=== PATIENT | female | born 1950 | race Caucasian/White ===

== ENCOUNTER → 2017-05-11 10:15 | Outpatient (CLI) | payer MEDICARE, SELFPAY ==
--- NOTE | 2017-05-11 10:23 | HPBI_ITS ---
MAMMOGRAPHY - BILATERAL SCREENING REASON FOR EXAM: Female, 67 years old. Routine annual screening examination. PERTINENT HISTORY: Mother with breast cancer. TECHNIQUE: Digital bilateral breast jadon (3D mammographic acquisition) in the CC and MLO projections. 2-D mediolateral oblique (MLO) and craniocaudad (CC) views of both breasts were obtained. CAD: Full Field Digital Mammography with Computer Added Detection was performed. COMPARISON: Comparison is made with prior operative examination dated every 2016. FINDINGS: Breast Composition: There are scattered areas of fibroglandular density. There are no dominant masses or suspicious calcifications. Stable asymmetry of breast tissue or more breast tissue is seen in the upper outer quadrant of the left breast as compared to the right side. No other significant abnormalities are identified. There has been no significant change since the prior study. HPBI/SCREENING MAMM (CAD), BILAT IMPRESSION: Stable bilateral screening mammogram. Yearly follow-up mammogram recommended. (A) ASSESSMENT CATEGORY: BIRADS Category 2: Benign. A letter regarding these results will be sent to the patient by the facility within 30 days. Approximately 10% of breast cancers are not detected by mammography. A normal mammogram should not delay biopsy of a clinically suspicious abnormality. [id number] Electronically Signed: Deep Soto MD at 14:11 EST Tel [phone], Service support ,
== END ==
PROVIDERS: Family Provider Internal Medicine; PCP Internal Medicine; Visit Provider Obstetrics & Gynecology
DX: Z12.31 Encounter for screening mammogram for malignant neoplasm of breast (principal)
CPT/HCPCS: 77063; 77067

== ENCOUNTER 2017-07-30 14:18 | Emergency (ER) | payer MEDICARE, SELFPAY ==
[2017-07-30 14:19] VITALS: BP 121/70; PULSE 74; RESP 16; TEMP 37.2; O2SAT 100; BMI 27.3
[2017-07-30] MEDS: 0.9% Normal Saline 1,000 ML 1000 ML IV (14:40)
--- NOTE | 2017-07-30 14:48 | VDLE_ITS ---
Reason For Study: swelling Procedure LEFT Exam performed portable in ED. GSV is normal. The exam was diagnostic. CFV is compressible, spontaneous, competent, A preliminary report was called and/or faxed and demonstrates pulsatile venous flow. to Dr. Benavidez. FV is compressible, spontaneous, competent and demonstrates pulsatile venous flow. POP V is compressible, spontaneous, competent and demonstrates pulsatile venous flow. T/P Trunk is compressible. PTV is compressible. LT PerV is compressible. Interpretation Summary There is no evidence of left lower extremity deep vein thrombosis. Left greater saphenous vein appears patent and compressible segmentally. Pulsitile venous flow is noted suggestive of proximal venous hypertension; clinical correlation would be appropriate. Ordering Physician: Martínez Benavidez Performed By: Bao Waller RVT
[2017-07-30 15:16] LABS: Bacteria 0 SEEN /hpf (None Seen); Mucous, Urine 0 SEEN /hpf (<or=2+); Red Blood Cells-Urine 0 SEEN /hpf (0-5); White Blood Cells 0 SEEN /hpf (0-5)
[2017-07-30 15:24] LABS: Color, Urine Yellow (Yellow); Glucose, Dipstick Normal (Normal); Ketone-Dipstick Negative (Negative); Leukocyte Esterase-Dipstick Negative /ul (Negative); Nitrite-Dipstick Negative (Negative); Occult Blood-Urine Negative /ul (Negative); Protein-Dipstick Negative (Negative); Specific Gravity, Urine 1.005 (1.002-1.030); Urine Bilirubin Dipstick Negative (Negative); Urine Clarity Sl. Cloudy (Clear); Urine Urobilinogen Normal (Normal)
[2017-07-30 15:31] LABS: Squamous Epithelial Cells - UA 0-5 SEEN /hpf (5-10)
[2017-07-30 15:45] LABS: Anion Gap 8 (5-15); BUN 6 mg/dL (7-18); BUN/Creat Ratio 10.6 RATIO (10-20); Calcium,Total 9.1 mg/dL (8.5-10.1); Chloride 100 mmol/L (98-107); Creatinine, Serum 0.57 mg/dL (0.55-1.02); EST Glomerular Filtration Rate 113 mL/min (>60); Est Glom Filt Rate - Afr Amer 136 mL/min (>60); Estimated Creatinine Clearance 38.14 ml/min; Glucose 99 mg/dL (74-106); Potassium 3.6 mmol/L (3.5-5.1); Sodium Level 137 mmol/L (136-145)
--- NOTE | 2017-07-30 15:50 | RAD_ITS ---
STUDY: X-RAY CHEST REASON FOR EXAM: Female, 67 years old. Fever TECHNIQUE: Frontal and lateral views of the chest were obtained. COMPARISON: None. FINDINGS: The lungs are adequately aerated. There are no focal airspace opacities. There is no demonstrated pleural abnormality. The cardiac silhouette is normal in size. The mediastinum and hilar regions are unremarkable. Normal visualized pulmonary arteries. There is atherosclerotic tortuosity of the thoracic aorta. There are diffuse degenerative changes of the visualized spine. There is mild S-shaped scoliosis of the thoracic spine. Hardware is present in the visualized lumbar spine. There are degenerative changes in both shoulders. There is hardware in the proximal left humerus. Skin jed are present along the back after lumbar spine surgery. RAD/Chest PA and Lateral IMPRESSION: There is no evidence of focal consolidation or pleural effusion. Electronically Signed: Rosalie Tran MD at 16:21 EDT Tel Direct: [phone], Service support ,
--- NOTE | 2017-07-30 15:59 | ED.VISSUMM ---
- ER Visit Summary Date of Service: 07/30/17 Chief Complaint: Fevers and chills History of Present Illness: The patient is a 67 F she is COPD and degenerative joint disease. Last week had significant back surgery done at [facility] by 1 of spine physicians. She was hospitalized and discharged on Sunday. States she was doing well did have intermittent fever and chills while hospitalized. Which have continued. Says her temperature has been around 100 - 1 00.4. She denies nausea, vomiting or diarrhea. She denies dysuria. She denies chest pain or shortness of breath. She has had mild swelling in her left ankle. She had her surgical site reevaluated and they thought it was healing appropriately and not infected. She said her back pain continues to improve. Physical Examination: Well-appearing older female. Vital signs are stable and afebrile. Pulse ox 100% on room air no signs of hypoxia. Blood pressure 121/70. She is in no distress. She does not look septic or toxic. HEENT exam unremarkable. Neck nontender no lymphadenopathy. Lungs clear to auscultation bilaterally. Heart regular rate and rhythm no murmur. Abdomen is soft and nontender. Normal bowel sounds no peritoneal signs. She is moving all 4 extremities. Neurovascularly intact. Calves are nontender without cords. She has mild swelling in her left ankle which is asymmetrical and no swelling on the right. Both feet are neurovascularly intact with DP pulses. Back exam shows a large well-healing lower thoracic and lumbar incision. Johnston are in place. No bleeding. No discharge. No cellulitis. I cannot express any blood or pus from the wound. Clinically it appears to be healing nicely and does not look infected. Test Results: White count 8.4. H&H of 10 and 30. No bands. His BMP normal. Normal creatinine and gas. UA normal. Blood cultures were sent. Emergency Department Course and Treatment: Patient is doing well on repeat exam at 4:15 PM. Treatment Plan: Patient will be discharged home. Follow-up with her primary care physician and her spine surgeon if this is not resolving. Disposition: Discharge Impression: Acute transient fever and chills of uncertain etiology Status post recent lumbar back surgery with orthopedic hardware This note was generated with [email or web address] dictation software. It may contain incorrect words, spelling, and punctuation that were not noted in review of the chart prior to signing ED Disposition - Plan for ED Patient: Disposition: Home or Assisted Living Chief Complaint: Fever Instructions: ED Fever Unconf Cause Referrals: Betty Fischer MD [Primary Care Provider] - 1-2 Days if not improving Additional Instructions: On follow-up with your primary care physician and also your spine surgeon if this does not improve and go away. Currently there is no source for any infection. However it is not normal to have continued fevers. If this does not resolve he will need further evaluation. I did send blood cultures as it was not you back from 1-2 days.
--- NOTE | 2017-07-30 16:04 | ED.DCSUM_ITS ---
- ER Visit Summary Date of Service: 07/30/17 Chief Complaint: Fevers and chills History of Present Illness: The patient is a 67 F she is COPD and degenerative joint disease. Last week had significant back surgery done at [facility] by 1 of spine physicians. She was hospitalized and discharged on Sunday. States she was doing well did have intermittent fever and chills while hospitalized. Which have continued. Says her temperature has been around 100 - 1 00.4. She denies nausea, vomiting or diarrhea. She denies dysuria. She denies chest pain or shortness of breath. She has had mild swelling in her left ankle. She had her surgical site reevaluated and they thought it was healing appropriately and not infected. She said her back pain continues to improve. Physical Examination: Well-appearing older female. Vital signs are stable and afebrile. Pulse ox 100% on room air no signs of hypoxia. Blood pressure 121/ 70. She is in no distress. She does not look septic or toxic. HEENT exam unremarkable. Neck nontender no lymphadenopathy. Lungs clear to auscultation bilaterally. Heart regular rate and rhythm no murmur. Abdomen is soft and nontender. Normal bowel sounds no peritoneal signs. She is moving all 4 extremities. Neurovascularly intact. Calves are nontender without cords. She has mild swelling in her left ankle which is asymmetrical and no swelling on the right. Both feet are neurovascularly intact with DP pulses. Back exam shows a large well-healing lower thoracic and lumbar incision. Rosa are in place. No bleeding. No discharge. No cellulitis. I cannot express any blood or pus from the wound. Clinically it appears to be healing nicely and does not look infected. Test Results: White count 8.4. H&H of 10 and 30. No bands. His BMP normal. Normal creatinine and gas. UA normal. Blood cultures were sent. Emergency Department Course and Treatment: Patient is doing well on repeat exam at 4:15 PM. Treatment Plan: Patient will be discharged home. Follow-up with her primary care physician and her spine surgeon if this is not resolving. Disposition: Discharge Impression: Acute transient fever and chills of uncertain etiology Status post recent lumbar back surgery with orthopedic hardware This note was generated with Ecinity dictation software. It may contain incorrect words, spelling, and punctuation that were not noted in review of the chart prior to signing ED Disposition - Plan for ED Patient: Disposition: Home or Assisted Living Chief Complaint: Fever Instructions: ED Fever Unconf Cause Referrals: Betty Fischer MD [Primary Care Provider] - 1-2 Days if not improving Additional Instructions: On follow-up with your primary care physician and also your spine surgeon if this does not improve and go away. Currently there is no source for any infection. However it is not normal to have continued fevers. If this does not resolve he will need further evaluation. I did send blood cultures as it was not you back from 1-2 days.
[2017-07-30 16:10] LABS: Absolute Lymphocyte Count 1.61 X10^3/ul (0.83-4.51); Absolute Neutrophil Count 5.1 X10^3/uL (2.0-7.7); Basophil# 0.03 X10^3/uL; Basophil% 0.4 % (0-1); Eosinophil# 0.12 X10^3/uL; Eosinophils% 1.4 % (0-5); Hematocrit 30.5 % (37-47); Lymphocyte # 1.61 X10^3/ul (4.0); Lymphocyte % 19.1 % (19-41); Mean Corp Hgb Conc 32.8 g/gl (32-36); Mean Corpuscular Hgb 31.7 pg (27.0-32.0); Mean Corpuscular Volume 96.8 fL (81-99); Mean Platelet Vol. 9.8 fl (6.2-12.0); Monocyte# 1.55 X10^3/uL; Monocyte% 18.4 % (0-10); Neutrophil # 5.09 X10^3/uL (2.7-7.7); Neutrophil % 60.6 % (47-70); Platelet Count 321 K/mm3 (150-450); RBC Distribution Width CV 13.8 % (11.6-14.6); RBC Distribution Width SD 48.8 fl (35.1-43.9); Red Blood Count 3.15 M/mm3 (4.2-5.4); White Blood Count 8.4 K/mm3 (4.4-11.0)
[2017-07-30 16:11] LABS: Differential Indicated SCAN CRITERIA MET; POSITIVE COUNT NO; POSITIVE DIFFERENTIAL YES; POSITIVE MORPHOLOGY NO
--- NOTE | 2017-07-30 16:20 | ED.DEP ---
ED Disposition - Plan for ED Patient: Disposition: Home or Assisted Living Chief Complaint: Fever Instructions: ED Fever Unconf Cause Referrals: Betty Fischer MD [Primary Care Provider] - 1-2 Days if not improving Additional Instructions: On follow-up with your primary care physician and also your spine surgeon if this does not improve and go away. Currently there is no source for any infection. However it is not normal to have continued fevers. If this does not resolve he will need further evaluation. I did send blood cultures as it was not you back from 1-2 days.
[2017-07-30 16:30] LABS: Differential Comment SCANNED
[2017-07-30 16:32] VITALS: BP 149/55; PULSE 74; RESP 12
[2017-07-30 16:35] VITALS: TEMP 36.8
== END 2017-07-30 16:38 | disposition home or self-care (01) ==
PROVIDERS: Emergency Provider Emergency Medicine; Family Provider Internal Medicine; PCP Internal Medicine
DX: R50.9 Fever, unspecified (principal); Z98.890 Other specified postprocedural states; J44.9 Chronic obstructive pulmonary disease, unspecified; R60.0 Localized edema; Z79.899 Other long term (current) drug therapy
CPT/HCPCS: 71046; 80048; 81001; 85025; 87040; 93971; 96360; 99284; J7030

== ENCOUNTER 2017-09-28 20:05 | Emergency (ER) | payer MEDICARE, SELFPAY ==
[2017-09-28 20:07] VITALS: BP 178/88; PULSE 64; RESP 17; TEMP 36.3; O2SAT 100; BMI 28.2
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
[2017-09-28 22:26] VITALS: BP 151/90; PULSE 68; RESP 16; O2SAT 97
== END 2017-09-28 22:27 | disposition home or self-care (01) ==
LOC: ED 21:10
PROVIDERS: Emergency Provider Emergency Medicine; Family Provider Internal Medicine; PCP Internal Medicine
DX: S39.012A Strain of muscle, fascia and tendon of lower back, initial encounter (principal); V43.92XA Unspecified car occupant injured in collision with other type car in traffic accident, initial encounter; Y93.9 Activity, unspecified; Y92.9 Unspecified place or not applicable; M19.90 Unspecified osteoarthritis, unspecified site; Z79.899 Other long term (current) drug therapy
CPT/HCPCS: 72100; 99282

== ENCOUNTER → 2017-12-21 07:09 | Outpatient (CLI) | payer MEDICARE, SELFPAY ==
--- NOTE | 2017-12-21 07:13 | CT_ITS ---
STUDY: LOW DOSE CT LUNG CANCER SCREENING REASON FOR EXAM: Female, 67 years old. Cough, former smoker one pack per day for 30 years, quit 15 years ago. Lung cancer screening. RADIATION DOSAGE (If Supplied By Facility): CTDIvol = ( 2.01 ) mGy, DLP = ( 64.69 ) mGycm TECHNIQUE: No contrast was administered. Low dose technique was utilized (average mAS-38 and kVp 120). 1.25 mm axial source images with a slice interval of 1.25-mm were reconstructed in lung windows. Nodule measured using lung windows on PACS and/or independent workstation with automated measurement of minimum and maximum diameter. Nodule measurement reported as average diameter rounded to the nearest whole number. Growth is defined as an increase ins size of greater than 1.5 mm. COMPARISON: X-ray chest 07/30/2017. FINDINGS: Total lung nodules (excluding granulomas): Right lower lobe lateral pleural margin noncalcified 2 mm pulmonary nodule. Image 136. Right lower lobe posterior pleural margin solid pulmonary nodule 4.2 mm. Image 118. Right upper lobe posterior segment posterior pleural margin noncalcified 3 mm solid pulmonary nodule. Image 54. Left upper lobe solid pulmonary nodule 4 mm. Image 52. Left lower lobe pulmonary nodule posterior pleural margin 4 mm. Image 179. Left lower lobe posterior lateral pleural margin 5.1 mm solid pulmonary nodule. Image 135. A few additional tiny pulmonary nodules are present. Emphysema: There is mild generalized pulmonary hyperlucency without specific features of centrilobular or paraseptal emphysema. Endobronchial lesion: There is no endobronchial lesion. Normal airways. Aorta: Mildly ectatic ascending aorta and proximal arch with a maximum diameter of 3.3 cm. Nonaneurysmal. Coronary arteries: No significant coronary calcifications are visible. Heart: Normal heart size without effusion. Pulmonary artery: Nondilated central pulmonary artery. Mediastinal nodes: There is no mediastinal mass or lymphadenopathy. Normal esophagus. Other chest and abdominal findings: Supraclavicular and body wall soft tissues, upper abdomen, osseous structures exhibit no acute process (limited evaluation with low dose technique. There is a left shoulder arthroplasty. There are moderately prominent degenerative changes of the right shoulder joint. There is mild thoracic scoliosis, osteopenia and spondylosis. CT/Low Dose CT Lung Screening IMPRESSION: Multiple solid circumscribed noncalcified pulmonary nodules as described above. ACR Lung RADS Category 2, benign appearance. Continue annual screening low dose CT. IMPORTANT NOTES FOR USE: ACR Lung-RADS Version 1.0 Assessment Categories Release Date: July 07, 2013 Category: Coded 0-4 bases on nodule(s) with highest degree of suspicion. Negative screen is defined as categories 1 and 2; a positive screen is defined as categories 3 and 4. Category 3 and 4A nodules that are unchanged on interval CT should be coded as category 2, and individuals returned to screening in 12 months. Category 4X: Category 3 or 4 nodules with additional imaging findings that increase the suspicion of lung cancer, such as spiculation, GGN that doubles in size in 1 year, enlarged lymph notes, etc. Category Modifiers: S (significant finding unrelated to lung cancer) and C (prior history of treated lung cancer) may be added to the 0-4 Lung-RADS Electronically Signed: Raphael Banks, at 17:56 EDT Tel , Service support ,
--- NOTE | 2017-12-21 12:54 | PFT ---
INTRODUCTION: The patient is a 67-year-old female that presents for pulmonary function studies secondary to a diagnosis of cough. Respiratory therapy reports good patient effort. Bronchodilators were used during testing. INTERPRETATION: Forced expiration spirometry demonstrates no evidence of a large airways obstructive ventilatory defect. Although there was no significant response to aerosolized bronchodilators, the patient did have a rather robust mid flow response. Spirograms are of good quality and plateau normally. Body plethysmography was performed, with significantly elevated lung volumes noted, likely erroneous in nature. Diffusing capacity by single breath CO is within normal limits. IMPRESSION: These pulmonary function studies demonstrate no evidence of a large airways obstruction. Lung volumes appear supraphysiologic, likely erroneous in nature. Diffusing capacity is within normal limits.
== END ==
PROVIDERS: Family Provider Internal Medicine; PCP Internal Medicine; Referring Provider Internal Medicine; Visit Provider Internal Medicine
DX: R05 Cough (principal); F17.201 Nicotine dependence, unspecified, in remission; Z87.891 Personal history of nicotine dependence
CPT/HCPCS: 94060; 94726; 94729; G0297

== ENCOUNTER → 2018-01-24 13:39 | Outpatient (CLI) | payer MEDICARE, SELFPAY ==
--- NOTE | 2018-01-24 13:59 | BD_ITS ---
STUDY: DUAL ENERGY X-RAY ABSORPTIOMETRY / DXA REASON FOR EXAM: Female, 67 years old. Early menopause. Loss of height. TECHNIQUE: Bone Mineral Density (BMD) measurements of lumbar spine and bilateral hips were obtained. COMPARISON: None. FINDINGS: Lumbar Spine (L1-L4): g/cm2 (0.914) / T-score (-2.4) / Z-score (-0.7) Findings are suggestive of osteopenia with a moderate fracture risk. Left Femur Total: g/cm2 (1.055) / T-score (0.4) / Z-score (1.8) Left Femoral Neck: g/cm2 (1.047) / T-score (0.1) / Z-score (1.7) Right Femur Total: g/cm2 (1.050) / T-score (0.3) / Z-score (1.8) Right Femoral Neck: g/cm2 (1.061) / T-score (0.2) / Z-score (1.8) BD/DXA BONE DENS W/VERT FX ASMT IMPRESSION: The patient is considered osteopenic at the level of the lumbar spine as outlined below according to World Kaden Organization (WHO) criteria with a moderate fracture risk. Reference Information: The T-score is the number of standard deviations above or below the standard which is normal for young adults at their peak bone mineral density. The World Health Organization (WHO) interprets the T-scores as follows: Above -1 Normal bone density Between -1 and -2.5 Osteopenia Equal to / or below -2.5 Osteoporosis As a practical clinical guideline, osteopenia may be graded as follows: Mild -1 through -1.5 Moderate -1.6 through -2.0 Severe -2.1 through -2.4 The Z-score is the number of standard deviations above or below age-matched controls. A Z-score of less than -1.5 would be considered abnormal. References: 1. NIH Osteoporosis and Related Bone Diseases http://www.osteo.org 2. International Society for Clinical Densitometry http://www.iscd.org 3. National Osteoporosis Foundation http://www.nof.org Electronically Signed: Deep Soto MD at 14:53 EST Tel [phone], Service support ,
== END ==
PROVIDERS: Family Provider Internal Medicine; PCP Internal Medicine; Visit Provider Internal Medicine
DX: Z78.0 Asymptomatic menopausal state (principal)
CPT/HCPCS: 77085

== ENCOUNTER → 2018-04-30 12:29 | Outpatient (CLI) | payer SELFPAY ==
--- NOTE | 2018-04-30 12:38 | CT_ITS ---
STUDY: CT CHEST WITHOUT CONTRAST REASON FOR EXAM: Female, 67 years old. Hypercholesterolemia. Trigeminal. Radiological over read examination. RADIATION DOSAGE (If Supplied By Facility): CTDIvol = ( 12.19 ) mGy, DLP = ( 195.04 ) mGycm TECHNIQUE: Transaxial imaging was performed without the administration of intravenous contrast material. Individualized dose optimization techniques were used for this CT. COMPARISON: None. FINDINGS: Mild increased markings in the posterior medial segment of the right lower lobe as well as in the left pleural suggestive of scarring. There is no demonstrated pleural abnormality. There are calcifications of the coronary arteries. There are multiple small lymph nodes within the mediastinum, which are normal in size and morphology most compatible with reactive lymph hyperplasia. Normal hilar regions. Normal unenhanced pulmonary arteries. Normal aorta arch and descending thoracic aorta. There are multi-level degenerative changes of the thoracic spine. There is no demonstrated abnormality of the visualized upper abdomen. CT/Limited Chest CT w/CCTA IMPRESSION: Findings suggestive of scarring at the lung bases. Coronary artery calcification. Electronically Signed: Deep Soto MD at 14:23 EST , Service support ,
--- NOTE | 2018-04-30 15:50 | CA.SCORE ---
Calcium Scoring Date of Study:: 04/30/18 Coronary Calcium Scoring: Coronary calcium score: 17.3 Conclusion: Coronary calcium score: 17.3 Results: The patient underwent a high resolution CT imaging of the chest on 04-30-2018 with attention to the coronary arteries. The examination was analyzed for the presence of extensive coronary artery calcification of the coronary calcium quantification software.The patient tolerated the procedure well without obvious adverse events. The coronary calcium score was reported at 17.3 with coronary calcium being located in the left main coronary artery. According to pre published reference tables a coronary calcium score of 17.3 wood be indicative of mild plaque burden and the likelihood of minimal to mild coronary artery stenosis. Impression: Coronary calcium score: 17.3 This note was generated using a voice recognition system and there may be incorrect words, spelling or punctuation that were not noted when reviewing the office note prior to saving.
== END ==
PROVIDERS: Family Provider Internal Medicine; PCP Internal Medicine; Referring Provider Internal Medicine; Visit Provider Internal Medicine
DX: E78.5 Hyperlipidemia, unspecified (principal)
CPT/HCPCS: 75571; 76380

== ENCOUNTER → 2018-05-31 10:31 | Outpatient (CLI) | payer MEDICARE, SELFPAY ==
--- NOTE | 2018-05-31 10:33 | BI_ITS ---
MAMMOGRAPHY - BILATERAL SCREENING 3-D BERTIN SYNTHESIS REASON FOR EXAM: Female, 68 years old. Bilateral Screening 3-D tomosynthesis PERTINENT HISTORY: No significant family history. TECHNIQUE: 2-D mammograms and 3-D Bertin synthesis of the breast (s) were performed. CAD was performed. COMPARISON: May 11, 2017, April 28, 2016 FINDINGS: The breast composition is almost entirely fat. Scattered benign calcifications are seen. There are stable lymph nodes. No dense spiculated masses or suspicious microcalcifications are identified. No architectural distortion is identified. There is no skin thickening or retraction. There has been no significant change since the prior study. BI/SCREENING MAMM (CAD), BILAT IMPRESSION: No mammographic signs of malignancy. Routine yearly mammograms recommended. ASSESSMENT CATEGORY: BIRADS Category 2: Benign. A letter regarding these results will be sent to the patient by the facility within 30 days. FOLLOW UP RECOMMENDATION: Yearly follow up mammogram recommended. (A) Approximately 10% of breast cancers are not detected by mammography. A normal mammogram should not delay biopsy of a clinically suspicious abnormality. Electronically Signed: Maykel Alas MD at 17:35 EDT , Service support ,
== END ==
PROVIDERS: Family Provider Internal Medicine; PCP Internal Medicine; Referring Provider Obstetrics & Gynecology; Visit Provider Obstetrics & Gynecology
DX: Z12.31 Encounter for screening mammogram for malignant neoplasm of breast (principal)
CPT/HCPCS: 77063; 77067

== ENCOUNTER → 2019-03-13 14:45 | Outpatient (CLI) | payer MEDICARE, SELFPAY ==
[2018-06-19 09:58] VITALS: BMI 28.3
== END ==
PROVIDERS: Family Provider Internal Medicine; PCP Internal Medicine; Referring Provider Obstetrics & Gynecology; Visit Provider Obstetrics & Gynecology
DX: R10.2 Pelvic and perineal pain (principal)
CPT/HCPCS: 87086; 87088

== ENCOUNTER → 2019-03-19 12:15 | Outpatient (CLI) | payer MEDICARE, SELFPAY ==
[2018-06-19 09:58] VITALS: BMI 28.3
--- NOTE | 2019-03-19 12:17 | US_ITS ---
STUDY: ULTRASOUND OF THE FEMALE PELVIS - COMPLETE REASON FOR EXAM: Female, 68 years old. DULL PELVIC PAIN LMP: PICC line TECHNIQUE: Transabdominal and Transvaginal TECHNICAL QUALITY: Adequate. COMPARISON: None. FINDINGS: The uterus is anteverted and is in a midline position. The uterus is atrophic and measures 2.7 x 2.8 x 1.6 cm. Normal uterine cervix. The endometrium measures 2. mm in thickness, and is hyperechoic. There is no demonstrated endometrial mass. There is no demonstrated myometrial mass. I.U.D. - The patient does not have an I.U.D. Bilateral ovaries are not visualized. There is no fluid in the cul-de-sac. The volume of the bladder was 83.0 ml. US/Pelvic (Non ) IMPRESSION: Atrophy of the uterus with otherwise normal appearance of the uterus otherwise suboptimally seen. Nonvisualized ovaries, if indicated, these findings may be further assessed with MRI of the pelvis in nonacute setting. No mass, cyst or free fluid seen. Remainder of the female pelvis ultrasound within normal limits for age. Electronically Signed: Margaret Marroquin MD at 2:39 EST , Service support ,
--- NOTE | 2019-03-19 12:17 | US_ITS ---
STUDY: ULTRASOUND OF THE FEMALE PELVIS - COMPLETE REASON FOR EXAM: Female, 68 years old. DULL PELVIC PAIN LMP: PICC line TECHNIQUE: Transabdominal and Transvaginal TECHNICAL QUALITY: Adequate. COMPARISON: None. FINDINGS: The uterus is anteverted and is in a midline position. The uterus is atrophic and measures 2.7 x 2.8 x 1.6 cm. Normal uterine cervix. The endometrium measures 2. mm in thickness, and is hyperechoic. There is no demonstrated endometrial mass. There is no demonstrated myometrial mass. I.U.D. - The patient does not have an I.U.D. Bilateral ovaries are not visualized. There is no fluid in the cul-de-sac. The volume of the bladder was 83.0 ml. US/Transvaginal Non- IMPRESSION: Atrophy of the uterus with otherwise normal appearance of the uterus otherwise suboptimally seen. Nonvisualized ovaries, if indicated, these findings may be further assessed with MRI of the pelvis in nonacute setting. No mass, cyst or free fluid seen. Remainder of the female pelvis ultrasound within normal limits for age. Electronically Signed: Margaret Marroquin MD at 2:39 EST , Service support ,
== END ==
PROVIDERS: Family Provider Internal Medicine; PCP Internal Medicine; Referring Provider Obstetrics & Gynecology; Visit Provider Obstetrics & Gynecology
DX: R10.2 Pelvic and perineal pain (principal)
CPT/HCPCS: 76830; 76856

== ENCOUNTER → 2019-08-14 09:51 | Outpatient (CLI) | payer MEDICARE, SELFPAY ==
[2018-06-19 09:58] VITALS: BMI 28.3
--- NOTE | 2019-08-14 09:52 | BI_ITS ---
MAMMOGRAPHY - BILATERAL SCREENING REASON FOR EXAM: Female, 69 years old. Routine annual screening examination. PERTINENT HISTORY: Mother with breast cancer. TECHNIQUE: Digital bilateral breast bertin (3D mammographic acquisition) in the CC and MLO projections. 2-D mediolateral oblique (MLO) and craniocaudad (CC) views of both breasts were obtained. CAD: Full Field Digital Mammography with Computer Added Detection was performed. COMPARISON: Comparison is made with prior examination dated May 31, 2018 and May 11, 2017. FINDINGS: Breast Composition: There are scattered areas of fibroglandular density. There are no dominant masses or suspicious calcifications. Stable asymmetry of breast tissue where more breast tissue is seen in the upper outer quadrant of the left breast as compared to the right side. This is unchanged. No other significant abnormalities are identified. There has been no significant change since the prior study. BI/SCREEN MAMM (CAD) W/BERTIN BILAT IMPRESSION: Stable bilateral screening mammogram. Yearly follow-up mammogram recommended. (A) ASSESSMENT CATEGORY: BIRADS Category 2: Benign. A letter regarding these results will be sent to the patient by the facility within 30 days. Approximately 10% of breast cancers are not detected by mammography. A normal mammogram should not delay biopsy of a clinically suspicious abnormality. [id number] Electronically Signed: Deep Soto, at 10:34 EDT , Service support ,
== END ==
PROVIDERS: PCP Internal Medicine; Referring Provider Internal Medicine; Visit Provider Internal Medicine
DX: Z12.31 Encounter for screening mammogram for malignant neoplasm of breast (principal)
CPT/HCPCS: 77063; 77067

== ENCOUNTER → 2019-09-26 08:59 | Outpatient (CLI) | payer MEDICARE, SELFPAY ==
[2019-08-21 11:29] VITALS: BMI 28.3
--- NOTE | 2019-09-26 09:02 | RAD_ITS ---
STUDY: X-RAY - LUMBAR SPINE REASON FOR EXAM: Female, 69 years old. Degenerative disc disease. TECHNIQUE: 2 view(s) of the lumbar spine were obtained. COMPARISON: Lumbar spine, September 28, 2017. FINDINGS: Normal lumbar lordosis. There is no substantial scoliosis. There is no change in alignment of the vertebrae. There is posterior fusion of L3-L5. The hardware is intact. There is endplate spondylosis and disc space narrowing at multiple levels unchanged from prior exam. There is no evidence of acute fracture or loss of vertebral axial height. Diffuse degenerative facet disease. There is atherosclerotic calcification of the abdominal aorta without a demonstrated aneurysm. RAD/Lumbar Spine 2 or 3 Views IMPRESSION: 1. Surgical fusion of L3-L5 unchanged from prior exam. 2. Stable degenerative changes of the lumbar spine. Electronically Signed: Carlton Nolen DO at 16:48 EDT Tel [phone], Service support ,
== END ==
PROVIDERS: PCP Internal Medicine; Referring Provider Internal Medicine; Visit Provider Internal Medicine
DX: M51.36 Other intervertebral disc degeneration, lumbar region (principal)
CPT/HCPCS: 72100

== ENCOUNTER → 2020-01-19 14:46 | Outpatient (CLI) | payer MEDICARE, SELFPAY ==
[2019-08-21 11:29] VITALS: BMI 28.3
--- NOTE | 2020-01-19 15:10 | CT_ITS ---
STUDY: CT RIGHT SHOULDER REASON FOR EXAM: Female, 69 years old. RIGHT SHOULDER REPLACEMENT Feb RADIATION DOSAGE (If Supplied By Facility): CTDIvol = ( 26.52 ) mGy, DLP = ( 612.99 ) mGycm TECHNIQUE: The patient was scanned in a multi detector CT scanner. High resolution transaxial imaging was performed without the administration of intravenous contrast material. Sagittal and coronal images were reconstructed. Individualized dose optimization techniques were used for this CT. COMPARISON: None. FINDINGS: There is moderate osteoarthritis, with moderate articular joint space narrowing and moderate osteoarthritic spurring. Prominent subchondral cyst of the glenoid. Normal humeral head, neck and tuberosities. Superior displacement humeral head suggestive of rotator cuff tear. Normal coracoid process. Normal visualized lateral clavicle. There is mild osteoarthritis with articular joint space narrowing. There is a Type II morphology (curved), with a neutral orientation. Normal visualized muscles and soft tissue structures. CT/Extremity Upper without Contra IMPRESSION: 1. Superior displacement humeral head consistent with rotator cuff tear and loss of depressor mechanism. 2. Mild acromioclavicular joint arthrosis. 3. Moderate glenohumeral joint arthrosis with large subchondral cyst of the glenoid. Electronically Signed: Raphael Dennis MD at 16:09 EST Tel , Service support ,
--- NOTE | 2020-01-26 13:18 | STRESSREP_ITS ---
Stress Test Report Exercise myocardial perfusion stress test. 69-year-old lady with a history of chest pain. Stress protocol: Resting EKG demonstrates normal sinus rhythm with a rate of 60 bpm occasional premature ventricular complex noted resting blood pressure is 1 and 32/70 8 mmHg. The patient exercised according to the regular Fausto protocol for a total duration of 6 minutes and 8 seconds. The maximum heart rate attained was 146 bpm which was 97% of max impacted heart rate the maximum workload was 7.1 metabolic equivalents. At rest there were no ST or T wave changes noted suggest ischemia. At peak exercise nonspecific ST-T wave changes were noted. The peak blood pressure was 150/74 mmHg the test was terminated due to the target heart rate being achieved. Myocardial perfusion protocol. 11.9 mCi of technetium 99m sestamibi was injected at rest. The patient exercised according to regular Fausto protocol at peak exercise 32.1 mCi of tech netium 99m sestamibi was injected stress images were obtained stress and rest images were reconstructed and compared in the short axis vertical long horizontal long axis gated images were also obtained per Perfusion SPECT analysis: Review of the stress images demonstrate normal uptake of tracer noted in all areas of the myocardium, the resting images similarly demonstrate normal uptake of tracer noted in all areas of the myocardium. No reversibility is noted just ischemia no previous infarct is noted. Gated SPECT analysis: The gated ejection fraction is 72%. Conclusion: Normal exercise myocardial perfusion stress test at a moderate workload. Preserved ejection fraction.
== END ==
PROVIDERS: PCP Internal Medicine; Referring Provider Specialist; Visit Provider Specialist
DX: M19.211 Secondary osteoarthritis, right shoulder (principal)
CPT/HCPCS: 73200

== ENCOUNTER → 2020-01-26 06:41 | Outpatient (CLI) | payer MEDICARE, SELFPAY ==
[2019-08-21 11:29] VITALS: BMI 28.3
== END ==
PROVIDERS: PCP Internal Medicine; Referring Provider Internal Medicine; Visit Provider Internal Medicine
DX: R07.89 Other chest pain (principal)
CPT/HCPCS: 78452; 93017; A9500; A4216

== ENCOUNTER 2020-02-16 08:38 | Day surgery (SDC) | payer MEDICARE, SELFPAY ==
[2020-01-30 13:15] VITALS: BMI 29.2
--- NOTE | 2020-02-16 | GASB_PTH ---
PATIENT: CONCHA QUIROGA LOC: EN U#:[id number] AGE/SX: 69/F ROOM: RE02/16/[address]: Dr. Raffy Altamirano MD : 1950 BED: DIS: 02/16/2020 SPEC #: [id number] RECD: 02/16/20 12:30 STATUS: RISHABH REAddie #: [id number] JEFFREY: 02/16/20 00:[address]: Raffy Altamirano DEPT: SURGICAL PATHOLOGY RECD BY: Norman López ENTERED: 02/16/20 12:30 SP TYPE: Gastric Bx OTHR DR: Dr. Deann Dick MD Tissues: Gastric mucous membrane Procedures: Surgery Specimen Level IV HEADER OPERATION: EGD ([facility] [place]) PRE-OP DIAGNOSIS: Esophageal dysphagia TISSUE SUBMITTED: Antrum biopsy for H. pylori and path MICROSCOPIC DIAGNOSIS Gastric antrum, biopsy: Chronic gastritis. AM:jacey 12/8/20 COMMENT The results of immunohistochemistry for Helicobacter pylori will be reported separately ([id number]). MICROSCOPIC DESCRIPTION Slides are reviewed. GROSS DESCRIPTION Received in fixative is one container labeled with the patient's name and designated antrum biopsy. The specimen consists of one irregular fragment of light parker soft tissue that measures 0.5 x 0.5 x 0.1 cm. The specimen is totally submitted in one cassette. / AM:jacey 02/16/20 TC:3 CPT: 85737
[2020-02-16 09:00] VITALS: BP 136/77; PULSE 75; RESP 16; TEMP 36.6; O2SAT 99; BMI 29.5
[2020-02-16] MEDS: Lactated Ringers 1,000 ML 75 ML IV (09:27)
--- NOTE | 2020-02-16 09:45 | IMM_PTH ---
PATIENT: CONCHA QUIROGA LOC: EN U#:[id number] AGE/SX: 69/F ROOM: RE02/16/[address]: Dr. Raffy Altamirano MD : 1950 BED: DIS: 02/16/2020 SPEC #: [id number] RECD: 02/16/20 14:31 STATUS: RISHABH REQ #: [id number] JEFFREY: 02/16/20 09:[address]: Raffy Altamirano DEPT: IMMUNOHISTOCHEMISTRY RECD BY: Kimberli Roman ENTERED: 02/16/20 14:32 SP TYPE: IMMUNO OTHR DR: Dr. Deann Dick MD Tissues: Stomach, NOS Procedures: H Pylori (initial) PHYSICIAN & INSTITUTION [place] [id number] SPECIMEN INFORMATION: Tissue Source: A - Antrum biopsy Clinical Info: Esophageal dysphagia Specimen Number: [id number] CPT code: 02318 METHODOLOGY: Deparaffinized sections of prefer/formalin-fixed tissue or PAP/DQ stained slides are incubated with monoclonal/polyclonal antibodies/oligonucleotide probes. Localization is made via biotin free immunoperoxidase method. Appropriate controls are performed and reacted as expected. Results on target cell population are indicated in the following table: RESULTS: ANTIBODY / CLONE RESULT Block A H Pylori (polyclonal) negative These tests were developed and their performance characteristics determined by [facility]. They may not have been cleared or approved by the U.S. Food and Drug Administration. The FDA has determined that such clearance or approval is not necessary. INTERPRETATION: A. Antrum, biopsy: Negative for Helicobacter pylori organisms. AM:jacey 02/17/20
[2020-02-16 09:55] VITALS: BP 124/55; BP 136/77; PULSE 69; RESP 16; TEMP 36.6; O2SAT 99
--- NOTE | 2020-02-16 09:55 | OP.EGD_ITS ---
Patient Name: Lori Gomez Procedure Date: 02/16/2020 9:37 AM Date of : 1950 Age: 69 Procedure: Upper GI endoscopy Indications: Dysphagia Providers: Raffy Altamirano MD Referring MD: Deann Dick Medicines: See the Anesthesia note for documentation of the administered medications Patient Profile: This is a 69 year old female. Refer to note in patient chart for documentation of history and physical. Complications: No immediate complications. Procedure: Pre-Anesthesia Assessment: - Prior to the procedure, a History and Physical was performed, and patient medications and allergies were reviewed. The patient's tolerance of previous anesthesia was also reviewed. The risks and benefits of the procedure and the sedation options and risks were discussed with the patient. All questions were answered, and informed consent was obtained. Prior Anticoagulants: The patient has taken no previous anticoagulant or antiplatelet agents. ASA Grade Assessment: II - A patient with mild systemic disease. After reviewing the risks and benefits, the patient was deemed in satisfactory condition to undergo the procedure. After obtaining informed consent, the endoscope was passed under direct vision. Throughout the procedure, the patient's blood pressure, pulse, and oxygen saturations were monitored continuously. The Endoscope was introduced through the mouth, and advanced to the second part of duodenum. The upper GI endoscopy was accomplished without difficulty. The patient tolerated the procedure well. Scope In: 9:46:54 AM Scope Out: 9:49:42 AM Total Procedure Duration Time 0 hours 2 minutes 48 seconds Findings: The examined esophagus was normal. The Z-line was regular and was found 39 cm from the incisors. No biopsies or other specimens were collected for this exam. Localized mild inflammation characterized by erythema and linear erosions was found in the prepyloric region of the stomach. Biopsies were taken with a cold forceps for Helicobacter pylori testing. The examined duodenum was normal. No biopsies or other specimens were collected for this exam. Impression: - Normal esophagus. - Z-line regular, 39 cm from the incisors. No specimens collected. - Gastritis. Biopsied. - Normal examined duodenum. No specimens collected. Recommendation: - Discharge patient to home. - Resume previous diet. - Continue present medications. - Await pathology results. - Repeat upper endoscopy at appointment to be scheduled for surveillance. - Telephone my office for pathology results in 1 week. - Perform routine esophageal manometry at appointment to be scheduled. If the patient is still experiencing dysphagia-like symptoms then esophageal manometry would be the next study I would order. Procedure Code(s): --- Professional --- 92015, Esophagogastroduodenoscopy, flexible, transoral; with biopsy, single or multiple Diagnosis Code(s): --- Professional --- K29.70, Gastritis, unspecified, without bleeding R13.10, Dysphagia, unspecified CPT copyright 2017 [employer]. All rights reserved. The codes documented in this report are preliminary and upon lap hand tool review may be revised to meet current compliance requirements. MD Raffy Martínez MD 02/16/2020 9:54:39 AM This report has been signed electronically. Number of Addenda: 0 Note Initiated On: 02/16/2020 9:37 AM
--- NOTE | 2020-02-16 09:55 | OP.CCLET_ITS ---
02/16/2020 Deann Dick Re : Upper GI endoscopy procedure for Lori Gomez Christie Dick This procedure was performed on Sunday, February 16, 2020. My impressions and recommendations are as follows: Impressions : - Normal esophagus. - Z-line regular, 39 cm from the incisors. No specimens collected. - Gastritis. Biopsied. - Normal examined duodenum. No specimens collected. Recommendations : - Discharge patient to home. - Resume previous diet. - Continue present medications. - Await pathology results. - Repeat upper endoscopy at appointment to be scheduled for surveillance. - Telephone my office for pathology results in 1 week. - Perform routine esophageal manometry at appointment to be scheduled. If the patient is still experiencing dysphagia-like symptoms then esophageal manometry would be the next study I would order. My findings are described in the full procedure note, which is enclosed. If I can be of further assistance, please feel free to contact me at Doctor phone number(s): , Fax: [phone], Work: . Sincerely, MD Raffy Martínez MD 02/16/2020 9:54:39 AM This report has been signed electronically.
[2020-02-16 10:00] VITALS: BP 122/63; BP 136/77; PULSE 68; RESP 16; O2SAT 97
--- NOTE | 2020-02-16 10:00 | HP_ITS ---
Intake Vital Signs 01/30/20 Height 4 ft 11 in 01/30/20 Weight: 145 lb 01/30/20 BMI 29.2 01/30/20 BP 151/82 H 01/30/20 Blood Pressure Location Lt brachial 01/30/20 Position Sitting 01/30/20 Respiration 18 01/30/20 Pulse 88 01/30/20 Pulse Source Monitor 01/30/20 Temp 97.8 F 01/30/20 Temp Source Temporal 01/30/20 Pulse Oximetry (%) 99 01/30/20 Oxygen Delivery Method room air Intake Visit Reasons: hiatal hernia Chief Complaint: GERD Supervisor Cell Operation Required: No Is patient in pain?: No Allergies Sulfa (Sulfonamide Antibiotics) Adverse Reaction (Severe, Verified 01/30/20 13:14) Other methotrexate Adverse Reaction (Verified 01/30/20 13:14) Other Penicillins Adverse Reaction (Verified 01/30/20 13:14) Mucosal lesions Medications Clonazepam [Klonopin] 0.25 mg PO BID PRN PRN 07/30/17 [History Confirmed 01/30/20] L.acidoph,Paracasei, B.lactis [Probiotic] 1 ea PO DAILY 07/30/17 [History Confirmed 01/30/20] Montelukast [Singulair] 10 mg PO DAILY 07/30/17 [History Confirmed 01/30/20] dicyclomine 10 mg capsule 10 mg PO TID cap 06/19/18 [History Confirmed 01/30/20] clobetasol 0.05 % topical ointment 1 applic TOPICAL QHS #30 g 08/21/19 [Rx Confirmed 01/30/20] ezetimibe 10 mg tablet 10 mg PO DAILY 08/21/19 [History Confirmed 01/30/20] losartan 50 mg tablet 50 mg PO DAILY 08/21/19 [History Confirmed 01/30/20] buspirone 5 mg tablet 5 mg PO TID tab 01/30/20 [History Confirmed 01/30/20] cholecalciferol (vitamin D3) 25 mcg (1,000 unit) capsule 1,000 unit PO DAILY cap 01/30/20 [History Confirmed 01/30/20] duloxetine 60 mg capsule,delayed release 60 mg PO DAILY 01/30/20 [History Confirmed 01/30/20] estradiol 10 mcg vaginal tablet 10 mcg VAGINAL 2XW 01/30/20 [History Confirmed 01/30/20] pantoprazole 40 mg tablet,delayed release 40 mg PO DAILY 01/30/20 [History Confirmed 01/30/20] [facility] Medical History Lichen sclerosus (Acute) Genital atrophy of female (Acute) Adrenal nodule (Acute) Anxiety and depression (Acute) Atherosclerosis of coronary artery (Acute) DDD (degenerative disc disease) (Acute) Elevated serum cholesterol (Acute) GERD (gastroesophageal reflux disease) (Acute) Hyperlipidemia (Acute) IBS (irritable bowel syndrome) (Acute) Mild asthma (Acute) Osteoarthritis (Acute) Osteopenia (Acute) Panic disorder without agoraphobia (Acute) Spondylosis (Acute) Vitamin D deficiency (Acute) Surgical History Facet arthropathy (Acute) H/O colonoscopy (Acute) History of tonsillectomy (Acute) History of total replacement of left shoulder joint (Acute) Hx of LASIK (Acute) S/P thyroid biopsy (Acute) Family History Mother Breast cancer Hypertension CAD (coronary artery disease) Brother Hypertension Arthritis History of high cholesterol Social History (Updated 02/04/20 @ 13:[address] Raffy Altamirano MD) Smoking Status: Former smoker alcohol intake: never substance use type: does not use diet: other well-balanced diet: daily or most days caffeine: Yes (5) what type of physical activity do you participate in: bicycling, weight training frequency: 5-6 times per week seatbelt use: always do you feel safe at home: Yes additional social history: Dre- both are retired Female Reproductive History Menstrual Ab spontaneous: 1 HPI HPI Surgical H&P: Yes HPI: CONCHA QUIROGA, is a 69 F who presents to the office today for Evaluation for endoscopy. Patient has been experiencing dysphagia-like symptoms. She has been having discomfort in her chest pressure-like symptoms. She has had a stress test was negative. This is been going on for approximately 2 months. Her last EGD was 3 years ago she believes it was negative. Lily Vela has added another proton pump inhibitor to her current regiment. ROS General General: No weight change, appetite, fatigue, colon cancer, breast cancer or weakness HEENT HEENT: No difficulty swallowing, eye injury, eye surgery, swollen glands or hoarseness Endo Endocrine: No thyroid disease, diabetes mellitus, thyroid cancer, Hair loss, heat intolerance or cold intolerance Skin Skin: No rash or changing moles Breast Breast: No left breast lump, right breast lump, nipple discharge, breast pain, abnormal mammogram, abnormal US or breast enlargement Musc Musculoskeletal: Yes back problems and arthritis; no rheumatoid arthritis, gout or joint pain Cardio Cardiovascular: No murmur, pacemaker, heart disease, atrial fibrillation, high blood pressure, heart attack, heart stent, palpitations, shortness of breat with exertion or chest pain Additional Details: Trigeminy PVC's Psych Psychiatric: Yes depression and anxiety; no hearing voices Resp Respiratory: Yes shortness of breath, No sleep apnea, No cough, No COPD, Yes asthma, No emphysema, No wheezing Gastro Gastrointestinal: No abdominal pain, No nausea or vomiting, No diarrhea, No constipation, No blood in stool, Yes acid reflux, Yes hemorrhoids, No ulcers, No gallbladder problem, No black,tarry stools Additional Details: IBS Jesús Hematologic: No blood thinners, No blood disorders, No bleeding, No anemia, No blood clots Neuro Neurologic: No system reviewed and no additional complaints, except as docu, No as per HPI, No abnormal walking, No abnormal hearing, No abnormal movements, No abnormal speech, No behavioral changes, No burning sensations, No confusion, No seizure-like activity, No unsteadiness, No dizziness, No localized weakness, No frequent falls, No headache(s), No lack of coordination, No loss of vision, No memory loss, No numbness, No other visual disturbances, No radiating pain, No restless legs, No sensory deficit, No fainting, No tingling, No tremor(s), No weakness, No other Exam Const General: no acute distress, well developed, well hydrated Orientation: oriented to person, oriented to place, oriented to time [facility] Head: normocephalic, atraumatic Ears: external ears normal Mouth: moist mucous membranes Eyes Sclera: sclerae normal Pupils: normal by confrontation Neck Neck: no lymphadenopathy noted Neck mass: No Thyroid: thyroid normal, symmetrical Chest Chest palpation & inspection: normal inspection of the chest Breast Palpation: No nipple discharge Resp Effort & Inspection: normal respiratory effort Auscultation: clear to auscultation bilaterally Percussion: percussion normal Cardio Rate: regular rate Rhythm: regular rhythm Heart Sounds: no murmurs GI Palpation: soft, no hepatosplenomegaly, no masses, nontender Rectal Exam: other Other: Rectal exam deferred. Extrem General: normal to inspection, no clubbing, cyanosis or edema Assessment & Plan Problems 1. Esophageal dysphagia R13.10 Plan I have discussed the above with the patient. I have offered the patient esophagogastroduodenoscopy for evaluation. I have explained the risks/benefits of the procedure and described the procedure. I have discussed the risks with the patient, including but not limited to: infection, bleeding, perforation of the GI tract requiring emergency surgery, inability to complete the procedure, injury to any internal organs, complications of anesthesia, etc. - the patient understands and agrees to proceed. I have answered all the patient's questions to the patient's satisfaction and the patient has no further questions. The patient has been given instructions for the colon cleansing preparation. Coding Level of Care Code Off vis,new,level 3 Diagnoses Esophageal dysphagia R13.10 ??Dysphagia type: esophageal phase COVID (Procedure Consent) Procedure Criteria Procedure Criteria: Yes Elective The surgeon/proceduralist and patient have discussed in detail the risk of exposure to and/or potential harm posed by the COVID-19 virus with having a surgery/procedure at this time versus the risk of? delaying the surgery/procedure. It is not possible to know either the risk of delaying the surgery or procedure or chance of getting an infection with perfect accuracy, but a joint decision was made between the patient and the surgeon/proceduralist ?to proceed at this time with the scheduled surgery/procedure as indicated on the consent form. I have re-examined the patient. There are no clinical changes since date of exam.
[2020-02-16 10:05] VITALS: BP 131/67; BP 136/77; PULSE 69; RESP 16; O2SAT 96
[2020-02-16 10:10] VITALS: BP 125/68; BP 136/77; PULSE 67; RESP 16; TEMP 36.2; O2SAT 96
[2020-02-16 10:37] VITALS: BP 136/77
== END 2020-02-16 10:37 | disposition home or self-care (01) ==
LOC: EN 08:38 → AC 08:38
PROVIDERS: PCP Internal Medicine; Referring Provider Internal Medicine; Visit Provider Surgery
PROC: 0DJ08ZZ Inspection of Upper Intestinal Tract, Via Natural or Artificial Opening Endoscopic (ICD-10-PCS; CPT 43235; principal; 2020-02-16 09:40)
DX: K29.50 Unspecified chronic gastritis without bleeding (principal); K21.9 Gastro-esophageal reflux disease without esophagitis; Z20.828 Contact with and (suspected) exposure to other viral communicable diseases; F41.9 Anxiety disorder, unspecified; F32.9 Major depressive disorder, single episode, unspecified; I25.10 Atherosclerotic heart disease of native coronary artery without angina pectoris; K58.9 Irritable bowel syndrome, unspecified; M19.90 Unspecified osteoarthritis, unspecified site; M85.80 Other specified disorders of bone density and structure, unspecified site; E55.9 Vitamin D deficiency, unspecified; M47.9 Spondylosis, unspecified; J45.909 Unspecified asthma, uncomplicated; E78.00 Pure hypercholesterolemia, unspecified; Z78.0 Asymptomatic menopausal state; Z79.899 Other long term (current) drug therapy; Z87.891 Personal history of nicotine dependence
CPT/HCPCS: 43239; 87426; 88305; 88342; C9803; J7120; J2405

== ENCOUNTER → 2020-05-28 14:18 | Outpatient (CLI) | payer MEDICARE, SELFPAY ==
--- NOTE | 2020-05-28 14:21 | VDLE_ITS ---
Reason For Study: lle pain RIGHT LEFT CFV is compressible, spontaneous, phasic, GSV is normal. competent and demonstrates normal CFV is compressible, spontaneous, phasic, augmentation. competent, and demonstrates normal Procedure augmentation. This is a venous duplex using B-mode, color FV is compressible, spontaneous, phasic, flow and spectral Doppler. competent and demonstrates normal Exam performed in department. augmentation. The exam was diagnostic. POP V is compressible, spontaneous, phasic, A preliminary report was called and/or faxed competent and demonstrates normal to Kalee Luu TRANSPLANT NURSE PRACTITIONER @ 2:15 pm. augmentation. T/P Trunk is compressible. PTV is compressible. LT PerV is compressible. Interpretation Summary Deep veins of the left lower extremity are patent and compressible segmentally. There is no evidence of left lower extremity deep vein thrombosis. Valvular competence appears intact within the proximal deep venous system on the left . The left great saphenous vein appears patent and compressible segmentally. Ordering Physician: Deann Dick Referring Physician: Deann Dick Performed By: Asha Sargent, RDCS, RVT
== END ==
PROVIDERS: PCP Internal Medicine; Referring Provider Internal Medicine; Visit Provider Internal Medicine
DX: M79.662 Pain in left lower leg (principal)
CPT/HCPCS: 93971

== ENCOUNTER → 2020-08-16 13:30 | Outpatient (CLI) | payer MEDICARE, SELFPAY ==
--- NOTE | 2020-08-16 13:32 | BI_ITS ---
MAMMOGRAPHY - BILATERAL SCREENING REASON FOR EXAM: Female, 70 years old. Routine annual screening examination. PERTINENT HISTORY: Mother with breast cancer. TECHNIQUE: Digital bilateral breast bertin (3D mammographic acquisition) in the CC and MLO projections. 2-D mediolateral oblique (MLO) and craniocaudad (CC) views of both breasts were obtained. CAD: Full Field Digital Mammography with Computer Added Detection was performed. COMPARISON: Comparison is made with prior study dated 08/14/2019 and 05/31/2018. FINDINGS: Breast Composition: There are scattered areas of fibroglandular density. There are no dominant masses or suspicious calcifications. Stable asymmetry of breast tissue with more breast tissue seen in the left upper outer quadrant. Stable small benign-appearing bilateral axillary lymph nodes. No other significant abnormalities are identified. There has been no significant change since the prior study. BI/SCRN MAMM (CAD)W/BERTIN BILAT IMPRESSION: Stable bilateral screening mammogram. Yearly follow-up mammogram recommended. (A) ASSESSMENT CATEGORY: BIRADS Category 2: Benign. A letter regarding these results will be sent to the patient by the facility within 30 days. Approximately 10% of breast cancers are not detected by mammography. A normal mammogram should not delay biopsy of a clinically suspicious abnormality. [id number] Electronically Signed: Deep Soto MD at 14:18 EDT , Service support ,
== END ==
PROVIDERS: PCP Internal Medicine; Referring Provider Obstetrics & Gynecology; Visit Provider Obstetrics & Gynecology
DX: Z12.31 Encounter for screening mammogram for malignant neoplasm of breast (principal)
CPT/HCPCS: 77063; 77067

== ENCOUNTER → 2021-01-10 13:51 | Outpatient (CLI) | payer MEDICARE, SELFPAY ==
--- NOTE | 2021-01-10 13:56 | CT_ITS ---
STUDY: CT SCAN LOWER EXTREMITY RIGHT REASON FOR EXAM: Female, 70 years old. PRE OP/VALGUS DEFORMITY.WARD protocol. RADIATION DOSAGE (If Supplied By Facility): CTDIvol = ( 18.76 ) mGy, DLP = ( 1093.11 ) mGycm. Individualized dose optimization techniques were used for this CT.? TECHNIQUE: Multiple axial tomographic images of the hip joint, knee joint and ankle joint were obtained. Coronal and sagittal reconstructions obtained as well. COMPARISON: None. FINDINGS: Mild degree of degenerative changes of the right hip joint. No significant osteoarthritis is seen. Imaging of the right knee joint was obtained. Moderate degree of joint space narrowing and osteoarthritis of the lateral compartment of knee joint. Mild degree of medial compartment osteoarthritis. Mild osteoarthritis of the patellofemoral joint. Minimal joint effusion. There are multiple tiny well-defined hypodensities involving the proximal tibia and bilateral femoral condyles. Imaging of the ankle joint was obtained. There is evidence of a degenerative changes of the talotibial calcaneal joint with a subchondral cyst formation at the level of the calcaneus and posterior talus. CT/Extremity Lower without Contra IMPRESSION: Moderate degree of the joint space narrowing involving the lateral compartment of the knee joint and mild degree of joint space narrowing involving the medial compartment and patellofemoral joints. Small subchondral cystic changes are seen. Degenerative changes of the talocalcaneal joint. Small joint effusion. Electronically Signed: Deep Soto MD at 14:32 EDT , Service support ,
== END ==
PROVIDERS: PCP Internal Medicine; Referring Provider Specialist; Visit Provider Specialist
DX: M21.061 Valgus deformity, not elsewhere classified, right knee (principal)
CPT/HCPCS: 73700

== ENCOUNTER → 2021-02-22 14:36 | Outpatient (CLI) | payer MEDICARE, SELFPAY ==
--- NOTE | 2021-02-22 14:44 | VDLE_ITS ---
Reason For Study: Pain and Swelling of right leg RIGHT GSV is normal. CFV is compressible, spontaneous, phasic, competent and demonstrates normal augmentation. FV is compressible, spontaneous, phasic, competent and demonstrates normal augmentation. POP V is compressible, spontaneous, phasic, competent and demonstrates normal augmentation. T/P Trunk is compressible. PTV is compressible. RT PerV is compressible. Procedure This is a venous duplex using B-mode, color flow and spectral Doppler. Exam performed in department. A preliminary report was called and/or faxed to [place]. VL/Venous Duplex US, Unilateral Interpretation Summary Deep veins of the right lower extremity are patent and compressible segmentally . There is no evidence of right lower extremity deep vein thrombosis. Valvular competence dick ears intact within the proximal deep venous system on the right . The right great saphenous vein a ppears patent and compressible segmentally. Ordering Physician: Deann Dick Referring Physician: Deann Dick Performed By: Chantal Johnson RVT
== END ==
PROVIDERS: PCP Internal Medicine; Referring Provider Internal Medicine; Visit Provider Internal Medicine
DX: M79.661 Pain in right lower leg (principal); M79.89 Other specified soft tissue disorders
CPT/HCPCS: 93971

== ENCOUNTER 2021-06-08 09:45 | Outpatient (CLI) | payer MEDICARE, SELFPAY ==
[2021-06-08 10:22] LABS: Erythrocyte Sedimentation Rate 9 mm/hr (0-30)
[2021-06-08 10:26] LABS: Absolute Lymphocyte Count 1.21 X10^3/uL (0.83-4.51); Absolute Neutrophil Count 3.7 X10^3/uL (2.0-7.7); Basophil# 0.07 X10^3/uL; Basophil% 1.3 % (0-1); Eosinophil# 0.05 X10^3/uL; Eosinophils% 0.9 % (0-5); Hematocrit 39.2 % (37-47); Hemoglobin 13.5 g/dL (12.0-15.0); Lymphocyte # 1.21 X10^3/ul (0.83-4.51); Lymphocyte % 21.9 % (19-41); Mean Corp Hgb Conc 34.4 g/dL (32-36); Mean Corpuscular Hgb 33.3 pg (27.0-32.0); Mean Corpuscular Volume 96.8 fL (81-99); Mean Platelet Vol. 10.6 fl (6.2-12.0); Monocyte# 0.53 X10^3/uL; Monocyte% 9.6 % (0-10); NRBC Flagged by Analyzer 0 % (0-5); Neutrophil # 3.65 X10^3/uL (2.7-7.7); Neutrophil % 65.9 % (47-70); Platelet Count 366 K/mm3 (150-450); RBC Distribution Width CV 14.2 % (11.6-14.6); RBC Distribution Width SD 50.7 fl (35.1-43.9); Red Blood Count 4.05 M/mm3 (4.2-5.4); White Blood Count 5.5 K/mm3 (4.4-11.0)
[2021-06-08 10:58] LABS: CRP 5.22 mg/L (0.0-3.0)
== END 2021-06-08 23:59 | disposition home or self-care (01) ==
PROVIDERS: PCP Internal Medicine; Referring Provider Physician Assistant Surgical; Visit Provider Physician Assistant Surgical
DX: Z96.651 Presence of right artificial knee joint (principal); Z47.1 Aftercare following joint replacement surgery
CPT/HCPCS: 36415; 85025; 85652; 86140

== ENCOUNTER → 2021-07-07 | Outpatient (CLI) | payer MEDICARE, SELFPAY ==
--- NOTE | 2021-07-07 10:15 | BD_ITS ---
STUDY: DUAL ENERGY X-RAY ABSORPTIOMETRY / DXA REASON FOR EXAM: Female, 71 years old. M85.89 TECHNIQUE: Bone Mineral Density (BMD) measurements of lumbar spine and bilateral hips were obtained. COMPARISON: Comparison is made with prior study 01/24/2018. FINDINGS: Lumbar Spine (L1-L4): g/cm2 (1.452) / T-score (4.3) / Z-score (6.5) Findings are suggestive of normal bone density with a low fracture risk. Left Femur Total: g/cm2 (0.936) / T-score (0.0) / Z-score (1.6) Left Femoral Neck: g/cm2 (0.844) / T-score (0.0) / Z-score (1.9) Right Femur Total: g/cm2 (0.944) / T-score (0.0) / Z-score (1.7) Right Femoral Neck: g/cm2 (0.870) / T-score (0.2) / Z-score (2.2) The T-Scores on the most recent prior examination were: Lumbar Spine (L1-L4): There has been improvement of bone density since the previous examination. Left Femur Total: which represents a worsening of 5.2%. Right Femur Total: which represents a worsening of 3.9%. BD/Dexa Bone Density Study IMPRESSION: The patient is considered normal as outlined below according to World [employer] Organization (WHO) criteria with a low fracture risk. There has been worsening of bone density since the previous examination. Reference Information: The T-score is the number of standard deviations above or below the standard which is normal for young adults at their peak bone mineral density. The World Health Organization (WHO) interprets the T-scores as follows: Above -1 Normal bone density Between -1 and -2.5 Osteopenia Equal to / or below -2.5 Osteoporosis As a practical clinical guideline, osteopenia may be graded as follows: Mild -1 through -1.5 Moderate -1.6 through -2.0 Severe -2.1 through -2.4 The Z-score is the number of standard deviations above or below age-matched controls. A Z-score of less than -1.5 would be considered abnormal. References: 1. NIH Osteoporosis and Related Bone Diseases www osteo.org 2. International Society for Clinical Densitometry www iscd.org 3. National Osteoporosis Foundation www nof.org Electronically Signed: Deep Soto MD at 9:13 EDT ,
== END | disposition home or self-care (01) ==
LOC: OPBD 10:07
PROVIDERS: PCP Internal Medicine; Visit Provider Internal Medicine
DX: M85.89 Other specified disorders of bone density and structure, multiple sites (principal)
CPT/HCPCS: 77080

== ENCOUNTER → 2021-07-08 | Outpatient (CLI) | payer SELFPAY ==
--- NOTE | 2021-07-08 12:38 | CT_ITS ---
STUDY: CARDIAC CALCIUM SCORING - CT CHEST REASON FOR EXAM: Female, 71 years old. CTA CORONARY ABNL CARDIOVASCULAR RESULTS History, Signs T Symptoms Hyperlipidemia TECHNIQUE: Axial non-enhanced images were acquired through the heart for the sole purpose of measuring coronary artery calcium. Individualized dose optimization techniques were used for this CT. COMPARISON: None. FINDINGS: Visualized surrounding anatomy: Normal. Left Main Coronary Artery: 83.7 Left Anterior Descending Artery: 0 Left Circumflex Artery: 0 Right Coronary Artery: 0 Total Calcium Score: 83.7 CT/Limited Chest CT w/CCTA IMPRESSION: A Calcium Score of 83.7 places the patient in the approximate 50 and 75 percentile, based on the KELLER data calculator. Please go to: [email or web address]-nhlbi.org/Calcium/input.aspx , for a description of the calculator. Electronically Signed: Jorge Wiggins MD at 8:18 EDT ,
[2021-07-08 13:03] VITALS: BP 120/68; PULSE 58; RESP 19; O2SAT 99; BMI 27.8
--- NOTE | 2021-07-08 18:07 | CA.SCORE ---
Calcium Scoring Date of Study:: 07/08/21 Coronary Calcium Scoring: High-resolution Computed Tomographic imaging of the chest was performed on 07/08/2021 with particular attention paid to the coronary arteries. Images from the examination were analyzed for the presence and extent of coronary artery calcification , using coronary calcium quantification software. The patient tolerated the procedure well and there were no complications. The results of the coronary calcification analysis are provided below. Findings Coronary Artery Left Main (LM): 83.7 Left Anterior Descending (LAD): 0 Left Circumflex (LCX): 0 Right Coronary Artery (RCA): 0 Total Agatston Score: 83.7 Percentile Ranking: According to prepublished reference tables between 50% and 75% of patients of the same gender and/or similar age had the same and/or lower scores. Calcium Scoring Interpretation: 0 No identifiable atherosclerotic plaque. Very low cardiovascular disease risk. <5% chance of presence coronary artery disease A Negative Examination 1-10 Minimal Plaque burden. Significant coronary artery disease very unlikely. 11-100 Mild plaque burden. Likely mild or minimal coronary atherosclerosis. 101-400 Moderate plaque burden Moderate non-obstructive coronary artery disease highly likely. Over 400 Extensive plaque burden. High likelihood of at least one significant coronary stenosis (>50% diameter) Calcium Score: 11 - 100 Likely mild or minimal coronary stenosis Conclusion: Continue vascular risk factor evaluation and care as deemed appropriate. This note was generated using a voice recognition system and there may be incorrect words, spelling or punctuation that were not noted when reviewing the office note prior to saving.
== END | disposition home or self-care (01) ==
LOC: CT 12:35
PROVIDERS: PCP Internal Medicine; Referring Provider Internal Medicine; Visit Provider Internal Medicine
DX: E78.5 Hyperlipidemia, unspecified (principal); Z13.6 Encounter for screening for cardiovascular disorders
CPT/HCPCS: 75571; 76380

== ENCOUNTER → 2021-09-07 | Outpatient (CLI) | payer MEDICARE, SELFPAY ==
--- NOTE | 2021-09-07 09:41 | BI_ITS ---
MAMMOGRAPHY - BILATERAL SCREENING REASON FOR EXAM: Female, 71 years old. Routine annual screening examination. PERTINENT HISTORY: Mother with breast cancer. Grandmother with breast cancer. TECHNIQUE: Digital bilateral breast bertin (3D mammographic acquisition) in the CC and MLO projections. 2-D mediolateral oblique (MLO) and craniocaudad (CC) views of both breasts were obtained. CAD: Full Field Digital Mammography with Computer Added Detection was performed. COMPARISON: Comparison is made with prior examination dated 08/16/2020 and 08/14/2019. FINDINGS: Breast Composition: There are scattered areas of fibroglandular density. There are no dominant masses or suspicious calcifications. Stable asymmetry of breast tissue were more breast tissue is seen in the left upper outer quadrant as compared to the right side. No other significant abnormalities are identified. There has been no significant change since the prior study. BI/SCRN MAMM (CAD)W/BERTIN BILAT IMPRESSION: Stable bilateral screening mammogram. Yearly follow-up mammogram recommended. (A) ASSESSMENT CATEGORY: BIRADS Category 2: Benign. A letter regarding these results will be sent to the patient by the facility within 30 days. Approximately 10% of breast cancers are not detected by mammography. A normal mammogram should not delay biopsy of a clinically suspicious abnormality. [id number] Electronically Signed: Deep Soto MD at 10:43 EDT ,
== END | disposition home or self-care (01) ==
PROVIDERS: PCP Internal Medicine; Visit Provider Obstetrics & Gynecology
DX: Z12.31 Encounter for screening mammogram for malignant neoplasm of breast (principal)
CPT/HCPCS: 77063; 77067

== ENCOUNTER → 2021-10-21 | Outpatient (CLI) | payer MEDICARE, SELFPAY ==
[2021-10-21 12:15] LABS: Erythrocyte Sedimentation Rate 20 mm/hr (0-30)
[2021-10-21 12:41] LABS: CRP < 2.90 mg/L (0.0-3.0)
[2021-10-24 22:09] LABS: Anti-Centromere B Ab <0.2 AI (0.0-0.9); Anti-Chromatin <0.2 AI (0.0-0.9); Anti-Jo <0.2 AI (0.0-0.9); Anti-Scleroderma-70 AB <0.2 AI (0.0-0.9); Endomysial Antibody IgA Negative (Negative); RNP Ab <0.2 AI (0.0-0.9); SJOGREN'S Anti-SS-A test < 0.2 AI (0.0-0.9); SJOGREN'S Anti-SS-B test < 0.2 AI (0.0-0.9); Smith Ab <0.2 AI (0.0-0.9)
[2021-10-25 11:31] LABS: Anti-dsDNA Ab <1 IU/mL (0-9)
[2021-10-25 13:08] LABS: Albumin 4.1 g/dL (2.9-4.4); Alpha-1-Globulins 0.3 g/dL (0.0-0.4); Alpha-2-Globulins 0.8 g/dL (0.4-1.0); Cytoplasmic Ab (C-ANCA) <1:20 titer (Neg:<1:20); Gamma Globulin 0.7 g/dL (0.4-1.8); Immunoglobulin A 265 mg/dL (64-422); Immunoglobulin E 6 IU/mL (6-495); Immunoglobulin G 682 mg/dL (586-1602); Immunoglobulin M 49 mg/dL (26-217)
[2021-10-25 15:56] LABS: Immunoglobulin A 285 mg/dL (64-422); t-Transglutaminase IgA <2 U/mL (0-3)
[2021-10-26 13:51] LABS: Perinuclear Ab (P-ANCA) <1:20 titer (Neg:<1:20)
== END | disposition home or self-care (01) ==
LOC: LAB 11:34
PROVIDERS: PCP Internal Medicine; Referring Provider Internal Medicine Gastroenterology; Visit Provider Internal Medicine Gastroenterology
DX: K58.9 Irritable bowel syndrome, unspecified (principal)
CPT/HCPCS: 36415; 82784; 82785; 83516; 84165; 85652; 86140; 86225; 86235; 86255; 86256; 86334

== ENCOUNTER → 2021-10-22 | Outpatient (CLI) | payer MEDICARE, SELFPAY ==
[2021-10-26 12:31] LABS: Pancreatic Elastase, Fecal 191 (>200)
[2021-10-26 15:32] LABS: Calprotectin, Stool 124 ug/g (0-120)
== END | disposition home or self-care (01) ==
LOC: LABSPEC 09:48
PROVIDERS: PCP Internal Medicine; Referring Provider Internal Medicine Gastroenterology; Visit Provider Internal Medicine Gastroenterology
DX: K58.9 Irritable bowel syndrome, unspecified (principal)
CPT/HCPCS: 82653; 83630; 83993; 87493; 87506

== ENCOUNTER → 2021-11-09 | Outpatient (CLI) | payer MEDICARE, SELFPAY ==
--- NOTE | 2021-11-09 09:34 | RAD_ITS ---
STUDY: X-RAY - ABDOMEN/PELVIS REASON FOR EXAM: Female, 71 years old. Sitz day 3 TECHNIQUE: Single AP view of the abdomen / pelvis. COMPARISON: None. FINDINGS: Normal visualized lung bases. There is a moderate amount of colonic fecal material. Left intrarenal calculi. No Sitzmarks are seen. Normal soft tissue structures. The patient is status post laminectomy and fusion at the L3-L4 and L4-L5 levels. RAD/Abdomen Single View IMPRESSION: No Sitzmarks markers are seen. Left intrarenal calculi. Electronically Signed: Deep Soto MD at 14:37 EDT ,
== END | disposition home or self-care (01) ==
LOC: RAD 09:32
PROVIDERS: PCP Internal Medicine; Referring Provider Internal Medicine Gastroenterology; Visit Provider Internal Medicine Gastroenterology
DX: K58.9 Irritable bowel syndrome, unspecified (principal)
CPT/HCPCS: 74018

== ENCOUNTER → 2022-05-05 | Outpatient (CLI) | payer MEDICARE, SELFPAY ==
[2022-05-09 14:30] LABS: Pancreatic Elastase, Fecal 148 (>200)
[2022-05-11 18:34] LABS: Calprotectin, Stool 68 ug/g (0-120); Fats, Neutral Normal (.); Fats, Total Increased (.)
== END | disposition home or self-care (01) ==
LOC: LABSPEC 09:43
PROVIDERS: PCP Internal Medicine; Referring Provider Internal Medicine Gastroenterology; Visit Provider Internal Medicine Gastroenterology
DX: K86.81 Exocrine pancreatic insufficiency (principal); D47.2 Monoclonal gammopathy; K58.9 Irritable bowel syndrome, unspecified
CPT/HCPCS: 82653; 82705; 83630; 83993

== ENCOUNTER → 2022-05-22 | Outpatient (CLI) | payer MEDICARE, SELFPAY ==
--- NOTE | 2022-05-22 13:46 | CT_ITS ---
STUDY: CT ABDOMEN AND PELVIS WITH CONTRAST REASON FOR EXAM: Female, 72 years old. Nausea/vomiting/diarrhea RADIATION DOSAGE (If Supplied By Facility): CTDIvol = ( 17.2 ) mGy, DLP = ( 990.75 ) mGycm TECHNIQUE: Transaxial images were obtained from the dome of the diaphragm to the symphysis pubis without oral contrast. Oral and amp; IV Readi-CAT and amp; 100mL Isovue-300 was administered. Sagittal and coronal images were reconstructed. Individualized dose optimization techniques were used for this CT. COMPARISON: None. FINDINGS: The visualized lung bases are unremarkable. The visualized portions of the heart are within normal limits. Liver is unremarkable aside from scattered simple cysts, largest is in the left lobe measuring 1.5 cm. Normal gallbladder and extrahepatic biliary system. Normal spleen. Normal pancreas. Normal bilateral adrenal glands. Normal right kidney. Normal left kidney. Normal visualized stomach. Normal small intestine. Retained stool noted throughout the colon. The appendix is visualized and appears normal. Appendix seen on coronal recon images 39 through 60 There is diffuse atherosclerotic calcification of the abdominal aorta, without a demonstrated aneurysm. Normal inferior vena cava. Normal retroperitoneum. Normal urinary bladder. Normal abdominal wall. There are diffuse degenerative changes of the visualized lumbar spine, and pelvis, surgical hardware at L3-L4 and L5 free of complication. CT/Abdomen/Pelvis WITH Contrast IMPRESSION: No suspicious solid organ abnormality, simple hepatic cysts, no specific follow-up needed Retained stool throughout the colon No free intraperitoneal fluid, air, or suspicious adenopathy, normal appendix visualized Atherosclerosis Degenerative and postsurgical changes in the lumbar spine, no demonstrated pelvic fracture Electronically Signed: Edwin Jacques MD at 14:38 EDT ,
[2022-05-22 14:15] LABS: CREATININE FINGERSTICK < 0.9 mg/dL (0.55-1.02); EGFR FINGERSTICK > 60.0000 mL/min (>60)
== END | disposition home or self-care (01) ==
LOC: CT 13:44
PROVIDERS: PCP Internal Medicine; Visit Provider Internal Medicine Gastroenterology
DX: R19.7 Diarrhea, unspecified (principal)
CPT/HCPCS: 74177; Q9967

== ENCOUNTER → 2022-05-31 | Outpatient (CLI) | payer MEDICARE, SELFPAY ==
--- NOTE | 2022-05-31 09:15 | MRI_ITS ---
EXAM: MR LEFT LOWER EXTREMITY WITHOUT INTRAVENOUS CONTRAST, ANKLE CLINICAL INDICATION: LEFT ankle arthritis, peroneal tendoninitis TECHNIQUE: Multiplanar and multisequence MR images of the left ankle without intravenous contrast. This report was created using [employer] report [employer] technology. COMPARISON: None. FINDINGS: LIGAMENTS: ANTERIOR TALOFIBULAR: Torn anterior talofibular ligament is not well seen. POSTERIOR TALOFIBULAR: Unremarkable. Intact. ANTERIOR TIBIOFIBULAR: Unremarkable. Intact. POSTERIOR TIBIOFIBULAR: Unremarkable. Intact. CALCANEOFIBULAR: Thickened calcaneofibular ligament from a previous/remote injury. DELTOID: Unremarkable. Intact. SPRING: Unremarkable. Intact. LISFRANC: Unremarkable. Intact. TENDONS: ACHILLES: Unremarkable. Intact. FLEXOR: Extensive tenosynovitis involving the medial flexor tendons and peroneal tendons. Short segment longitudinal split tear involving the peroneus brevis tendon which reconstitutes at the anterolateral aspect of the calcaneus. EXTENSOR: Unremarkable. Intact. PERONEAL: See above. TIBIALIS ANTERIOR: Unremarkable. Intact. TIBIALIS POSTERIOR: Unremarkable. Intact. MUSCLES: Unremarkable. Normal bulk and signal. FLUID: Moderate tibiotalar joint effusion. Moderate posterior subtalar joint effusion. SINUS TARSI: Unremarkable. Normal fat in the sinus tarsi. TARSAL TUNNEL: Unremarkable. PLANTAR FASCIA: Unremarkable. Intact. CARTILAGE: Unremarkable. No osteochondral lesion. Articular cartilage intact. BONES/JOINTS: 2.0 x 1.8 cm ganglion cyst along the anterolateral aspect of the talus anteriorly. Severe arthritic changes involving the posterior subtalar articulation. No fracture or marrow edema. OTHER SOFT TISSUES: Unremarkable. No other tendon tearing. MRI/Lower Ext Joint Only (Routine) IMPRESSION: 1. Extensive tenosynovitis involving the medial flexor tendons and peroneal tendons. Short segment longitudinal split tear involving the peroneus brevis tendon which reconstitutes at the anterolateral aspect of the calcaneus. 2. Severe arthritic changes involving the posterior subtalar articulation. 3. Torn anterior talofibular ligament is not well seen (likely chronic). 4. Moderate tibiotalar and moderate posterior subtalar joint effusions. Electronically Signed: Hemanth Anderson MD at 2:37 EDT ,
== END | disposition home or self-care (01) ==
PROVIDERS: PCP Internal Medicine; Referring Provider Orthopaedic Surgery; Visit Provider Orthopaedic Surgery
DX: M19.072 Primary osteoarthritis, left ankle and foot (principal); M76.72 Peroneal tendinitis, left leg
CPT/HCPCS: 73721

== ENCOUNTER → 2022-09-08 | Outpatient (CLI) | payer MEDICARE, SELFPAY ==
--- NOTE | 2022-09-08 10:09 | BI_ITS ---
MAMMOGRAPHY - BILATERAL SCREENING REASON FOR EXAM: Female, 72 years old. Routine annual screening examination. PERTINENT HISTORY: Mother with breast cancer. Grandmother with breast cancer. TECHNIQUE: Digital bilateral breast bertin (3D mammographic acquisition) in the CC and MLO projections. 2-D mediolateral oblique (MLO) and craniocaudad (CC) views of both breasts were obtained. CAD: Full Field Digital Mammography with Computer Added Detection was performed. COMPARISON: Comparison is made with prior study September 07, 2021 and August 16, 2020. FINDINGS: Breast Composition: There are scattered areas of fibroglandular density. There are no dominant masses or suspicious calcifications. Stable asymmetry of breast tissue where more breast tissue is seen in the left upper outer quadrant as compared to the right side. No other significant abnormalities are identified. There has been no significant change since the prior study. BI/SCRN MAMM (CAD)W/BERTIN BILAT IMPRESSION: Stable bilateral screening mammogram. Yearly follow-up mammogram recommended. (A) ASSESSMENT CATEGORY: BIRADS Category 2: Benign. A letter regarding these results will be sent to the patient by the facility within 30 days. Approximately 10% of breast cancers are not detected by mammography. A normal mammogram should not delay biopsy of a clinically suspicious abnormality. [id number] Electronically Signed: Deep Soto MD at 12:48 EDT ,
== END | disposition home or self-care (01) ==
PROVIDERS: PCP Internal Medicine; Referring Provider Obstetrics & Gynecology; Visit Provider Obstetrics & Gynecology
DX: Z12.31 Encounter for screening mammogram for malignant neoplasm of breast (principal); Z80.3 Family history of malignant neoplasm of breast
CPT/HCPCS: 77063; 77067

== ENCOUNTER → 2022-09-14 | Outpatient (CLI) | payer MEDICARE, SELFPAY ==
[2022-09-19 08:12] LABS: HPV APTIMA, High Risk Negative (Negative)
== END | disposition home or self-care (01) ==
LOC: LABSPEC 16:11
PROVIDERS: PCP Internal Medicine; Visit Provider Obstetrics & Gynecology
DX: Z01.419 Encounter for gynecological examination (general) (routine) without abnormal findings (principal)
CPT/HCPCS: 87624; 88175; G0145

== ENCOUNTER → 2023-04-30 | Outpatient (CLI) | payer MEDICARE, SELFPAY ==
--- NOTE | 2023-04-30 09:47 | CDU_ITS ---
Reason For Study: Change in vision Rt. Velocities/BP Lt. Velocities/BP Prox CCA 74/11.6 cm/sec. Prox CCA 94.9/13.5 cm/sec. Mid CCA 94.9/14.6 cm/sec. Mid CCA 81.7/15.7 cm/sec. Dist CCA 76.2/14.6 cm/sec. Dist CCA 66.3/13.5 cm/sec. Prox ICA 67.4/20.1 cm/sec. Prox ICA 65.2/17.6 cm/sec. Mid ICA 56.4/15.7 cm/sec. Mid ICA 78.4/16.8 cm/sec. Dist ICA 85/21.2 cm/sec. Dist ICA 65/17.4 cm/sec. Rt. ICA/CCA = 1.12. Lt. ICA/CCA = 0.96. Prox ECA 101.1/7.7 cm/sec. Prox ECA 86.1/11.3 cm/sec. Rt. Vert. 33.4/9.9 cm/sec. Lt. Vert. 45.8/12.6 cm/sec. Right Extracranial There is intimal thickening but no significant atherosclerotic plaque noted in the right common carotid artery. There is heterogeneous, irregular atherosclerotic plaque noted in the right internal carotid artery. There is heterogeneous, irregular atherosclerotic plaque noted in the right external carotid artery. Antegrade flow is noted in the right vertebral artery. Structure noted in the right lobe of thyroid that measures 1.79 x 2.36 x 3.44 cm. Left Extracranial There is homogeneous, smooth atherosclerotic plaque noted in the left common carotid artery. There is heterogeneous, irregular atherosclerotic plaque noted in the left internal carotid artery. There is homogeneous, smooth atherosclerotic plaque noted in the left external carotid artery. Antegrade flow is noted in the left vertebral artery. Procedure Carotid Duplex [id number]. This is a Carotid Duplex examination using B-mode, color flow and specral Doppler. Exam performed in department. VL/Carotid Duplex Ultrasound Interpretation Summary Irregular plaque with calcific shadowing at the proximal right internal carotid artery with less than 50% stenosis Less than 50% stenosis right external carotid artery Minimal irregular plaque at the proximal left internal carotid artery with less than 50% stenosis Less than 50% stenosis left external carotid artery Patent antegrade vertebral arteries bilaterally Incidental note is made of a 1.79 x 2.36 x 3.44 cm solid cystic right thyroid n odule Ordering Physician: Deann Dick Referring Physician: Deann Dick Performed By: Chantal Johnson RVT
== END | disposition home or self-care (01) ==
LOC: CVS 09:42
PROVIDERS: PCP Internal Medicine; Referring Provider Internal Medicine; Visit Provider Internal Medicine
DX: R42 Dizziness and giddiness (principal)
CPT/HCPCS: 93880

== ENCOUNTER → 2023-05-14 | Outpatient (CLI) | payer MEDICARE, SELFPAY ==
--- NOTE | 2023-05-14 11:47 | US_ITS ---
INDICATION: thyroid nodule EXAMINATION: Ultrasound US Thyroid (eg thyroid, parathyroid, parotid) TECHNIQUE: Read scale and color doppler imaging was performed of the thyroid gland. COMPARISON: No relevant prior comparison study available FINDINGS: RIGHT THYROID LOBE: 2.7 x 5.1 x 2.6 cm. Homogeneous echotexture with normal vascularity. [There is a predominantly solid 2.9 x 2.0 x 2.2 cm well-circumscribed nodule with a hypoechoic margin and internal vascularity. No calcifications are visualized. LEFT THYROID LOBE: 2.1 x 4.6 x 1.5 cm. Homogeneous echotexture with normal vascularity. [No thyroid nodules are present. ISTHMUS: 0.34 cm. No thyroid nodules are present. US/Thyroid IMPRESSION: Enlarged thyroid gland associated with a predominantly solid 2.9 x 2.0 x 2.2 cm nodule within the right lobe of the gland. Electronically Signed: Evonne Sharp MD at 8:47 EST ,
== END | disposition home or self-care (01) ==
LOC: US 11:46
PROVIDERS: PCP Internal Medicine; Referring Provider Internal Medicine; Visit Provider Internal Medicine
DX: E04.1 Nontoxic single thyroid nodule (principal)
CPT/HCPCS: 76536

== ENCOUNTER → 2023-05-24 | Outpatient (CLI) | payer MEDICARE, SELFPAY ==
--- NOTE | 2023-05-24 08:01 | MRI_ITS ---
EXAM: MR HEAD WITHOUT INTRAVENOUS CONTRAST CLINICAL INDICATION: change in vision, BILATERAL TECHNIQUE: Multiplanar and multisequence MR images of the brain were obtained without intravenous contrast. COMPARISON: No relevant prior studies available. FINDINGS: BRAIN AND EXTRA-AXIAL SPACES: Increased T2 signal intensity within the cerebral white matter suggestive of chronic microvascular change. No intra- or extra-axial hemorrhage. No evidence of acute infarct. No intracranial mass or mass effect. There is preservation of the aragon/white matter interface. Posterior fossa structures are unremarkable. Ventricles are appropriate for age. No hydrocephalus. Basal cisterns are patent. SELLA: Normal. Normal sella turcica, pituitary gland, infundibular stalk, optic chiasm and hypothalamus. AUDITORY SYSTEM: Normal. The internal auditory canals are patent. BONES/JOINTS: Intact calvarium. SINUSES: Unremarkable as visualized. Clear. MASTOID AIR CELLS: Unremarkable as visualized. Clear. ORBITS: Unremarkable as visualized. Both globes, extraocular muscles, optic nerves and retrobulbar fat appear unremarkable. VASCULATURE: Unremarkable as visualized. Normal flow voids in the major intracranial circulation. MRI/Brain without Contrast IMPRESSION: 1. No acute intracranial abnormality. 2. Senescent changes. Electronically Signed: Orlando Belle MD at 16:08 EDT ,
== END | disposition home or self-care (01) ==
LOC: MRI 07:54
PROVIDERS: PCP Internal Medicine; Referring Provider Internal Medicine; Visit Provider Internal Medicine
DX: H53.9 Unspecified visual disturbance (principal); R51.9 Headache, unspecified
CPT/HCPCS: 70551

== ENCOUNTER → 2023-05-31 | Outpatient (CLI) | payer MEDICARE, SELFPAY ==
--- NOTE | 2023-05-31 09:00 | FLU_PTH ---
PATIENT: CONCHA QUIROGA LOC: [facility] U#:[id number] AGE/SX: 73/F ROOM: RE05/31/[address]: Dr. Juan C Jacob MD : 1950 BED: DIS: 05/31/2023 SPEC #: [id number] RECD: 05/31/23 11:05 STATUS: RISHABH LIVAN #: [id number] JEFFREY: 05/31/23 09:[address]: Juan C Jacob DEPT: CYTOLOGY RECD BY: Carmen Salazar ENTERED: 05/31/23 11:49 SP TYPE: Fluid OTHR DR: Dr. Deann Dick MD Tissues: A - Thyroid gland, NOS B - Thyroid gland, NOS Procedures: Special Stain Group II Surgery Specimen Level IV Cytospin Fluid HEADER OPERATION: Fine needle aspiration Right thyroid nodule PRE-OP DIAGNOSIS: Right thyroid nodule TISSUE SUBMITTED: A- Right thyroid nodule fluid, B- Right thyroid nodule slides x4 DIAGNOSIS CYTOLOGY A. Right thyroid nodule, Fine needle aspiration (cytospin and cellblock); Negative for malignant cells. B. Right thyroid nodule, Fine needle aspiration (smears); Consistent with benign follicular/colloid nodule (Stanford Category II). See comment. ILANA/ 06/01/2023 COMMENT B. The specimen is paucicellular however meets the minimal criteria for adequacy of specimen. Correlation with clinical, radiologic findings and appropriate follow up are necessary. The Stanford System for thyroid diagnostic categorization was used in the evaluation of this case. CYTOLOGY STUDY Slides are reviewed. CYTOLOGY GROSS A. Received is 30 ml of red cloudy fluid labeled with the patient's name and and designated per the requisition as Right thyroid nodule. Submitted for cytology preparation including cell block. B. Received are 4 smears labeled with the patient's name and designated per the requisition as Right thyroid nodule. Submitted for staining. mr 05/31/23 TC:5 CPT: 06426g3, 55612
== END | disposition home or self-care (01) ==
PROVIDERS: PCP Internal Medicine; Referring Provider Surgery; Visit Provider Surgery
DX: E04.1 Nontoxic single thyroid nodule (principal)
CPT/HCPCS: 88108; 88305; 88313

== ENCOUNTER → 2023-06-01 | Outpatient (CLI) | payer MEDICARE, SELFPAY ==
[2023-06-01 17:49] LABS: Free T3 2.3 pg/mL (2.18-3.98); T4 Free Direct 1.05 ng/dL (0.76-1.46); Thyroid Stim Hormone (TSH) 0.93 uIU/mL (0.358-3.74)
== END | disposition home or self-care (01) ==
LOC: LAB 14:46
PROVIDERS: PCP Internal Medicine; Referring Provider Surgery; Visit Provider Surgery
DX: E04.1 Nontoxic single thyroid nodule (principal)
CPT/HCPCS: 36415; 84439; 84443; 84481

== ENCOUNTER 2023-07-10 11:11 | Day surgery (SDC) | payer MEDICARE, SELFPAY ==
[2023-07-10 11:38] VITALS: BP 145/82; PULSE 78; RESP 16; TEMP 36.8; O2SAT 99; BMI 28.6
[2023-07-10] MEDS: Lactated Ringers 1,000 ML 15 ML IV (11:42)
--- NOTE | 2023-07-10 12:15 | EGD_PTH ---
PATIENT: CONCHA QUIROGA LOC: [facility] U#:[id number] AGE/SX: 73/F ROOM: RE07/10/[address]: Dr. Artie Lam DO : 1950 BED: DIS: 07/10/2023 SPEC #: [id number] RECD: 07/10/23 16:03 STATUS: RISHABH REAddie #: [id number] JEFFREY: 07/10/23 12:[address]: Artie Lam DEPT: SURGICAL PATHOLOGY RECD BY: Carmen Salazar ENTERED: 07/11/23 09:47 SP TYPE: EGD BIOPSY OT DR: Dr. Deann Dick MD Tissues: A - Duodenum, NOS B - Gastric mucous membrane C - Gastric mucous membrane D - COLON BIOPSY Procedures: Surgery Specimen Level IV HEADER OPERATION: Colonoscopy with biopsies, EGD with biopsy PRE-OP DIAGNOSIS: Exocrine pancreatic insufficiency, Irritable bowel syndrome, Monoclonal gammopathy of unknown significance, GERD TISSUE SUBMITTED: A- Duodenum biopsy, B- Antrum biopsy, C- Gastric body biopsy, D- Random colon biopsy MICROSCOPIC DIAGNOSIS A. Duodenum, biopsy: No pathologic change. B. Gastric antrum, biopsy: Mild chronic inflammation. C. Gastric body, biopsy: Mild chronic inflammation. D. Colon, random biopsy: Mild melanosis coli. [facility] 07/12/23 COMMENT B. The results of immunohistochemistry for Helicobacter pylori will be reported separately ([id number]). MICROSCOPIC DESCRIPTION Slides are reviewed. GROSS DESCRIPTION A. Received in fixative is one container labeled with the patient's name and designated Duodenum biopsy. The specimen consists of multiple irregular fragments of light parker soft tissue that in aggregate measure 1.5 x 0.5 x 0.1 cm. The specimen is totally submitted in one cassette. B. Received in fixative is one container labeled with the patient's name and designated Antrum biopsy. The specimen consists of multiple irregular fragments of light parker soft tissue that in aggregate measure 1.0 x 0.2 x 0.1 cm. The specimen is totally submitted in one cassette. C. Received in fixative is one container labeled with the patient's name and designated Gastric body biopsy. The specimen consists of multiple irregular fragments of light parker soft tissue that in aggregate measure 0.7 x 0.3 x 0.1 cm. The specimen is totally submitted in one cassette. D. Received in fixative is one container labeled with the patient's name and designated Random colon biopsy. The specimen consists of multiple irregular fragments of light parker soft tissue that in aggregate measure 2.0 x 0.5 x 0.1 cm. The specimen is totally submitted in one cassette. AM/ 07/11/23 TC:3 CPT:32936n9
--- NOTE | 2023-07-10 12:15 | IMM_PTH ---
PATIENT: CONCHA QUIROGA LOC: EN U#:[id number] AGE/SX: 73/F ROOM: RE07/10/[address]: Dr. Artie Lam DO : 1950 BED: DIS: 07/10/2023 SPEC #: [id number] RECD: 07/11/23 10:27 STATUS: RISHABH REQ #: [id number] JEFFREY: 07/10/23 12:[address]: Artie Lam DEPT: IMMUNOHISTOCHEMISTRY RECD BY: Bryson Pfeiffer ENTERED: 07/11/23 10:27 SP TYPE: IMMUNO OTHR DR: Dr. Deann Dick MD Tissues: B - Stomach, NOS Procedures: H Pylori (initial) PHYSICIAN & INSTITUTION [place] [address] SPECIMEN INFORMATION: Tissue Source: B- Antrum biopsy Clinical Info: Exocrine pancreatic insufficiency, Irritable bowel syndrome, MGUS, GERD Specimen Number: [id number] CPT code: 47774 METHODOLOGY: Deparaffinized sections of prefer/formalin-fixed tissue or PAP/DQ stained slides are incubated with monoclonal/polyclonal antibodies/oligonucleotide probes. Localization is made via biotin free immunoperoxidase method. Appropriate controls are performed and reacted as expected. Results on target cell population are indicated in the following table: RESULTS: ANTIBODY / CLONE RESULT Block B H Pylori (polyclonal) negative These tests were developed and their performance characteristics determined by [facility]. They may not have been cleared or approved by the U.S. Food and Drug Administration. The FDA has determined that such clearance or approval is not necessary. The above immunohistochemical/dualISH markers are ordered and reviewed by the Pathologist. INTERPRETATION: B. Antrum, biopsy: Negative for Helicobacter pylori organisms. SORIN/ 07/12/23
--- NOTE | 2023-07-10 12:58 | PCM.HP.BLA ---
History and Physical Date of Admission: 07/10/23 73 F who presents to the office today for follow up. GI Hx includes hiatal hernia, hemorrhoids, GERD. PMH trigeminy, elevated homocysteine, osteopenia, hyperlipidemia, HTN, asthma, anxiety/depression ? GI Dr. Santana established until he moved. Then established with GI in [place]. Colonoscopy Dr. Graves 02.04.18?with normal colon. Biopsy, random, noted mild architectural distortion and focal hyperplastic changes without evidence of lymphocytic or collagenous colitis. EGD 02.16.[address] Altamirano?with normal esophagus and regular Z-line. Gastritis. H.Pylori negative. No hiatal hernia noted. Biochemical workup ?CBC, ESR without pertinent abnormality. CRP H 5.22 ? *BGI established 10.21.21. Constipation is an issue which she uses MiraLAX BID which promotes daily soft BM; prior to MiraLAX start she was having varying stool consistency between very soft and hard pellets. Denies abdominal pain, rectal pain or straining. Fresh vegetables, fried foods and spicy foods historically caused her to have diarrhea and nausea; she avoids these items and does not typically have an issue with this. Dysphagia historically an issue for which she has seen Dr. Altamirano who performed EGD 02.16.20 noting a normal esophagus. Swallowing improved following EGD. Biochemical workup ?CRP, ESR, SEGUNDO comp, ANCA, celiac, GAME without pertinent abnormality. p-ANCA H1:40, M-spike H0.2 Stool testing giardia, enteric pathogen without pertinent abnormality. Lactoferrin +, calprotectin H124, pancreatic elastase L191 Referred to oncology services for M-Abhay who will be conducting surveillance. SITZ markers ?none seen on first XRay. ? [facility] 11.01.21 for M-Abhay with recommendation to conduct surveillance. ? OV 01.13.22 MiraLAX continues with complete cow-araceli each day. Concern of increased flatulence with spicy foods, dairy, tomato as trigger. ?Start Creon OV 05.04.22 Continues to have difficulty with constipation (MiraLAX causing morning BM), stool consistency is formed/soft and feels the consistency is dependent on specific food triggers as noted above. Reflux is now a difficulty with feeling of postprandial chest discomfort/burning, it has become more prevalent in the last few weeks it has become more persistent. IBS/MGUS/EPI, stool testing. ?Stool?calprotectin,?lactoferrin?WNL.? Total fats elevated, Elastase L148 ?CT abd/pel 3.?hepatic simple cysts largest 1.5cm; retained stool throughout colon. OV 5.25.23 Feels she is approximately the same as when she started seeing this clinic; stools are frequent and do occur when she eats and urinates. Notes some burning in her stomach this week that feels is related to something she ate. Continues with Creon 3 each meal, and 2 with snacks. She does not find the stooling bothersome, bloating postprandial is also not particularly bothersome. She is most concerned about the burning in her stomach and would like an acid administration manager to use as needed.?Start doxycycline Contact, portal 6..23 without change with doxycycline use. OV 10.2.23 constipation has been a difficulty with daily movement but incomplete evacuation and ongoing bloating. She has been reintroducing some foods (raw vegetables) that give her flatulence but is tolerating them very well. OV 3.28.24- Pt reports increase of reflux and burning in esophagus. Continues Pantoprazole and Famotidine. BM are formed and thin, daily. Has diarrhea with trigger foods. Feels a lot of her sx are r/t diet. Exam Const General: cooperative and comfortable Nutritional Appearance: average body habitus and well nourished [facility] Head: normal to inspection Ears: hearing grossly normal bilaterally Nose: external nose normal Face and sinus: normal facial exam Mouth: oral mucosae normal Throat: posterior oropharynx normal Eyes General: appearance normal, both eyes and all related structures Neck Neck: normal visual inspection Chest Chest palpation & inspection: normal inspection of the chest and normal palpation of entire chest wall Resp Effort & Inspection: normal respiratory effort Auscultation: Bilateral: Clear to Auscultation Cardio Palpation: normal PMI Rate: regular rate Rhythm: regular rhythm GI Inspection: normal to inspection Auscultation: normal bowel sounds Percussion: normal to percussion Palpation: no hepatosplenomegaly Skin General: no rashes or lesions noted Neuro General: patient alert Extrem General: normal to inspection Psych Affect: normal affect Quality Reporting Tobacco Screening (CMS 138) Smoking Status: Former smoker Assessment and Plan Assessment and Plan (1) Exocrine pancreatic insufficiency: Status: Chronic Plan: I think she was experiencing this secondary to bacterial overgrowth. She is on pancreatic enzymes and has noticed some improvement with certain foods that she eats and it has been thickening up her stool. We will recheck her stool for pancreatic elastase and fecal calprotectin with her on pancreatic enzymes after she completes Doxycycline. (2) IBS (irritable bowel syndrome): Status: Chronic Qualifiers: Irritable bowel syndrome type: with constipation Qualified Code(s): K58.1 - Irritable bowel syndrome with constipation Plan: She is doing a lot better and regarding her abdominal pain. We have made some changes in adding the use of enzymes due to the fact that she had a low pancreatic elastase level. I think that coupled with increased inflammation, positive p-ANCA antibody and other autoantibodies there is a strong suspicion for possible inflammatory bowel disease. That would explain why she would have decrease effectiveness of pancreatic elastase that will cause abdominal pain and bloating. She also have an increase in pancreatic enzymes after she completes the course of antibiotics. She will give us a call back in 2 weeks to see how she is doing and to also see if we need to increase the amount of pancreatic enzymes we gave her. (3) MGUS (monoclonal gammopathy of unknown significance): Status: Acute Plan: Her repeat immunofixation and protein electrophoresis had normalized and the did not show a M spike. She is being followed by hematology. (4) GERD (gastroesophageal reflux disease): Status: Acute Plan: Refractory gastroesophageal reflux disease to 40 mg of pantoprazole in the morning and 40 mg of famotidine at night. She does have a hiatal hernia which does cause her some issues especially at night when she lays down. We will increase her pantoprazole to 40 mg in the morning and 40 mg at night for 4 weeks. She will call us with an updated at that time to see if she still having symptoms or if she needs a repeat upper endoscopy. I have examined the patient and the H&P has been reviewed. There are no clinical changes since date of exam.
[2023-07-10 13:45] VITALS: BP 125/71; BP 145/82; PULSE 77; RESP 18; TEMP 36.1; O2SAT 98
--- NOTE | 2023-07-10 13:48 | OP.EGD_ITS ---
Patient Name: Lori Gomez Procedure Date: 07/10/2023 1:07 PM Date of : 1950 Age: 73 Procedure: Upper GI endoscopy Indications: Epigastric abdominal pain, Functional Dyspepsia Providers: Artie Lam DO Medicines: Monitored Anesthesia Care Patient Profile: This is a 73 year old female. Refer to note in patient chart for documentation of history and physical. Patient has symptoms. Complications: No immediate complications. Procedure: Pre-Anesthesia Assessment: - Prior to the procedure, a History and Physical was performed, and patient medications and allergies were reviewed. The patient is competent. The risks and benefits of the procedure and the sedation options and risks were discussed with the patient. All questions were answered and informed consent was obtained. Patient identification and proposed procedure were verified by the physician in the pre-procedure area. Mental Status Examination: alert and oriented. Airway Examination: normal oropharyngeal airway and neck mobility. Respiratory Examination: clear to auscultation. CV Examination: normal. Prophylactic Antibiotics: The patient does not require prophylactic antibiotics. Prior Anticoagulants: The patient has taken no anticoagulant or antiplatelet agents. ASA Grade Assessment: III - A patient with severe systemic disease. After reviewing the risks and benefits, the patient was deemed in satisfactory condition to undergo the procedure. The anesthesia plan was to use monitored anesthesia care (MAC). Immediately prior to administration of medications, the patient was re-assessed for adequacy to receive sedatives. The heart rate, respiratory rate, oxygen saturations, blood pressure, adequacy of pulmonary ventilation, and response to care were monitored throughout the procedure. The physical status of the patient was re-assessed after the procedure. After obtaining informed consent, the endoscope was passed under direct vision. Throughout the procedure, the patient's blood pressure, pulse, and oxygen saturations were monitored continuously. The Colonoscope was introduced through the mouth, and advanced to the second part of duodenum. The upper GI endoscopy was accomplished without difficulty. The patient tolerated the procedure well. Scope In: 1:17:17 PM Scope Out: 1:23:48 PM Total Procedure Duration Time 0 hours 6 minutes 31 seconds Findings: The examined esophagus was normal. Patchy mildly erythematous mucosa without bleeding was found in the gastric body. Biopsies were taken with a cold forceps for histology. Verification of patient identification for the specimen was done. Estimated blood loss was minimal. Biopsies were taken with a cold forceps for Helicobacter pylori testing. Verification of patient identification for the specimen was done. Estimated blood loss was minimal. The second portion of the duodenum was normal. Biopsies were taken with a cold forceps for histology. Verification of patient identification for the specimen was done. Estimated blood loss was minimal. Impression: - Normal esophagus. - Erythematous mucosa in the gastric body. Biopsied. - Normal second portion of the duodenum. Biopsied. Recommendation: - Discharge patient to home. - Resume previous diet. - Continue present medications. - Await pathology results. Procedure Code(s): --- Professional --- 45134, Esophagogastroduodenoscopy, flexible, transoral; with biopsy, single or multiple CPT copyright 2021 [employer]. All rights reserved. The codes documented in this report are preliminary and upon brand ambassador review may be revised to meet current compliance requirements. Artie Lam DO 07/10/2023 1:47:20 PM This report has been signed electronically. Number of Addenda: 0 Note Initiated On: 07/10/2023 1:07 PM
[2023-07-10 13:50] VITALS: BP 123/70; BP 145/82; PULSE 75; RESP 18; O2SAT 98
--- NOTE | 2023-07-10 13:50 | OP.COLON_ITS ---
Patient Name: Lori Gomez Procedure Date: 07/10/2023 1:24 PM Date of : 1950 Age: 73 Procedure: Colonoscopy Indications: Abdominal pain in the left lower quadrant, Clinically significant diarrhea of unexplained origin Providers: Artie Lam DO Medicines: Monitored Anesthesia Care Patient Profile: This is a 73 year old female. Refer to note in patient chart for documentation of history and physical. Patient has symptoms. Last Colonoscopy: date unknown. Unable to locate last colonoscopy report. Complications: No immediate complications. Procedure: Pre-Anesthesia Assessment: - Prior to the procedure, a History and Physical was performed, and patient medications and allergies were reviewed. The patient is competent. The risks and benefits of the procedure and the sedation options and risks were discussed with the patient. All questions were answered and informed consent was obtained. Patient identification and proposed procedure were verified by the physician in the pre-procedure area. Mental Status Examination: alert and oriented. Airway Examination: normal oropharyngeal airway and neck mobility. Respiratory Examination: clear to auscultation. CV Examination: normal. Prophylactic Antibiotics: The patient does not require prophylactic antibiotics. Prior Anticoagulants: The patient has taken no anticoagulant or antiplatelet agents. ASA Grade Assessment: III - A patient with severe systemic disease. After reviewing the risks and benefits, the patient was deemed in satisfactory condition to undergo the procedure. The anesthesia plan was to use monitored anesthesia care (MAC). Immediately prior to administration of medications, the patient was re-assessed for adequacy to receive sedatives. The heart rate, respiratory rate, oxygen saturations, blood pressure, adequacy of pulmonary ventilation, and response to care were monitored throughout the procedure. The physical status of the patient was re-assessed after the procedure. After I obtained informed consent, the scope was passed under direct vision. Throughout the procedure, the patient's blood pressure, pulse, and oxygen saturations were monitored continuously. The Colonoscope was introduced through the anus and advanced to the cecum, identified by appendiceal orifice and ileocecal valve. The colonoscopy was performed without difficulty. The patient tolerated the procedure well. The quality of the bowel preparation was fair. The ileocecal valve, appendiceal orifice, and rectum were photographed. Scope In: 1:25:44 PM Scope Withdrawal Time 0 hours 9 minutes 31 seconds Scope Out: 1:41:12 PM Total Procedure Duration Time 0 hours 15 minutes 28 seconds Findings: The perianal and digital rectal examinations were normal. A few small-mouthed diverticula were found in the sigmoid colon. An area of mildly congested mucosa was found in the rectum, in the recto-sigmoid colon, at the hepatic flexure, in the ascending colon and in the cecum. Biopsies were taken with a cold forceps for histology. Verification of patient identification for the specimen was done. Estimated blood loss was minimal. A single medium-sized angiodysplastic lesion without bleeding was found in the cecum. Stool was found in the cecum. Impression: - Preparation of the colon was fair. - Diverticulosis in the sigmoid colon. - Congested mucosa in the rectum, in the recto-sigmoid colon, at the hepatic flexure, in the ascending colon and in the cecum. Biopsied. - A single non-bleeding colonic angiodysplastic lesion. - Stool in the cecum. Recommendation: - Discharge patient to home. - Resume previous diet. - Continue present medications. - Await pathology results. - Repeat colonoscopy for surveillance based on pathology results. Procedure Code(s): --- Professional --- 72409, Colonoscopy, flexible; with biopsy, single or multiple CPT copyright 2021 [employer]. All rights reserved. The codes documented in this report are preliminary and upon it specialist review may be revised to meet current compliance requirements. Artie Lam DO 07/10/2023 1:49:58 PM This report has been signed electronically. Number of Addenda: 0 Note Initiated On: 07/10/2023 1:24 PM
[2023-07-10 13:55] VITALS: BP 121/76; BP 145/82; PULSE 82; RESP 18; O2SAT 100
[2023-07-10 14:00] VITALS: BP 145/82
== END 2023-07-10 14:28 | disposition home or self-care (01) ==
LOC: EN 11:16 → AC 11:16
PROVIDERS: PCP Internal Medicine; Referring Provider Internal Medicine; Visit Provider Internal Medicine Gastroenterology
PROC: 0DJD8ZZ Inspection of Lower Intestinal Tract, Via Natural or Artificial Opening Endoscopic (ICD-10-PCS; CPT 45378; principal; 2023-07-10 12:10)
DX: R10.13 Epigastric pain (principal); R19.7 Diarrhea, unspecified; K57.30 Diverticulosis of large intestine without perforation or abscess without bleeding; R10.32 Left lower quadrant pain; K86.89 Other specified diseases of pancreas; K58.1 Irritable bowel syndrome with constipation; K21.9 Gastro-esophageal reflux disease without esophagitis; D47.2 Monoclonal gammopathy; K63.89 Other specified diseases of intestine
CPT/HCPCS: 43239; 45380; 88305; 88342; J7120

== ENCOUNTER → 2023-07-26 | Outpatient (CLI) | payer MEDICARE, SELFPAY | END | disposition home or self-care (01) | PROVIDERS: PCP Internal Medicine; Referring Provider Internal Medicine; Visit Provider Internal Medicine | DX: R00.8 Other abnormalities of heart beat (principal) | CPT/HCPCS: 93225; 93226 ==

== ENCOUNTER → 2023-08-03 | Outpatient (CLI) | payer MEDICARE, SELFPAY ==
--- NOTE | 2023-08-03 09:44 | ECHOD_ITS ---
Reason For Study: Other abnormalities of heart beat Procedure This was a 2D Doppler, Color Flow transthoracic echocardiogram. Exam performed in department. Left Ventricle Normal LV size. The estimated ejection fraction is 65 %. Diastolic function is indeterminate. No regional wall motion abnormalities noted. Right Ventricle Normal RV size. Normal systolic function. Atria Normal left atrium. Normal right atrium. No doppler evidence for ASD. Bubble contrast study negative for right to left interatrial shunt. Mitral Valve There is no mitral valve stenosis. No mitral valve insufficiency. Tricuspid Valve There is no tricuspid stenosis. Trivial tricuspid valve insufficiency. Pulmonary artery systolic pressure is 40 mmHg. Aortic Valve Trisinus/trileaflet aortic valve. There is no aortic stenosis. Trivial aortic valve insufficiency. Pulmonic Valve There is no pulmonic valvular stenosis. Trivial pulmonic valve insufficiency. Great Vessels Normal aortic root. Pericardium/Pleural No pericardial effusion. Medication 22 gauge I.V. with prn adaptor inserted into left arm. Performed a rapid injection of agitated mix of 9 cc saline and 1cc air to assess for atrial septal defect. MMode/2D Measurements & Calculations LVIDd: 4.3 cm IVSd: 0.98 cm LA dimension: 4.1 cm LVIDs: 2.9 cm LVPWd: 1.2 cm RVDd: 4.0 cm FS: 31.7 % LAV(MOD-bp): 48.0 ml LVAd ap4: 26.3 cm2 SV(MOD-sp4): 38.2 ml LAV(MOD-bp) Indexed: 29.8 ml/m2 LVLd ap4: 7.5 cm LAV(MOD-sp2): 45.9 ml EDV(MOD-sp4): 73.9 ml LAV(MOD-sp4): 45.0 ml EDV(sp4-el): 77.8 ml LVAs ap4: 16.2 cm2 LVLs ap4: 6.3 cm ESV(MOD-sp4): 35.7 ml ESV(sp4-el): 35.6 ml EF(MOD-sp4): 51.7 % EF(sp4-el): 54.3 % SV(sp4-el): 42.2 ml LA A4 area: 16.3 cm2 RA A4 area: 12.7 cm2 TAPSE: 2.3 cm Time Measurements MV dec time: 0.28 sec Doppler Measurements & Calculations MV E max alex: 60.5 cm/sec Lat Peak E' Laex: 7.3 cm/sec Med Peak E' Alex: 5.6 cm/sec MV A max alex: 111.2 cm/sec E/E' lat: 8.3 E/E' med: 10.7 MV E/A: 0.54 MV V2 max: 139.8 cm/sec MV P1/2t max alex: 69.4 cm/sec Ao V2 max: 161.8 cm/sec MV max P.8 mmHg MV P1/2t: 94.6 msec Ao max P.5 mmHg MV V2 mean: 61.7 cm/sec Ao V2 mean: 112.0 cm/sec MV mean P.9 mmHg MV dec slope: 214.8 cm/sec2 Ao mean P.7 mmHg MV V2 VTI: 30.2 cm MVA(P1/2t): 2.3 cm2 Ao V2 VTI: 36.1 cm AV (velocity ratio): 0.69 LV V1 max: 106.4 cm/sec PA V2 max: 95.1 cm/sec PI end-d alex: 129.7 cm/sec LV V1 max P.5 mmHg LV V1 mean P.6 mmHg LV V1 mean: 76.0 cm/sec LV V1 VTI: 24.9 cm TR max alex: 301.9 cm/sec TR max P.5 mmHg ECHO/Echo Complete Interpretation Summary The estimated ejection fraction is 65 %. Diastolic function is indeterminate. Trivial aortic valve insufficiency. Ordering Physician: Deann Dick Referring Physician: Deann Dick Performed By: Jomar Harvey RCS
== END | disposition home or self-care (01) ==
LOC: CVS 09:44
PROVIDERS: PCP Internal Medicine; Referring Provider Internal Medicine; Visit Provider Internal Medicine
DX: R00.8 Other abnormalities of heart beat (principal)
CPT/HCPCS: 93306; A4216

== ENCOUNTER → 2023-09-12 | Outpatient (CLI) | payer MEDICARE, SELFPAY ==
--- NOTE | 2023-09-12 09:41 | BI_ITS ---
MAMMOGRAPHY - BILATERAL SCREENING 3-D TOMOSYNTHESIS REASON FOR EXAM: Female, 73 years old. screening PERTINENT HISTORY: No significant family history. TECHNIQUE: 2-D mammograms and 3-D Tomosynthesis of the breast (s) were performed. CAD was performed. COMPARISON: 09/08/2022 FINDINGS: The breast composition is composed of scattered fibroglandular density. Scattered benign calcifications are seen. No dense spiculated masses or suspicious microcalcifications are identified. No architectural distortion is identified. There is no skin thickening or retraction. There has been no significant change since the prior study. BI/SCRN MAMM (CAD)W/BERTIN BILAT IMPRESSION: No mammographic signs of malignancy. Routine yearly mammograms recommended. ASSESSMENT CATEGORY: BIRADS Category 1: Negative. A letter regarding these results will be sent to the patient by the facility within 30 days. FOLLOW UP RECOMMENDATION: Yearly follow up mammogram recommended. (A) Approximately 10% of breast cancers are not detected by mammography. A normal mammogram should not delay biopsy of a clinically suspicious abnormality. Electronically Signed: Raphael Dennis MD at 18:48 EDT ,
== END | disposition home or self-care (01) ==
LOC: OPBI 09:40
PROVIDERS: PCP Internal Medicine; Referring Provider Obstetrics & Gynecology; Visit Provider Obstetrics & Gynecology
DX: Z12.31 Encounter for screening mammogram for malignant neoplasm of breast (principal)
CPT/HCPCS: 77063; 77067

== ENCOUNTER → 2024-05-15 | Outpatient (CLI) | payer MEDICARE, SELFPAY ==
--- NOTE | 2024-05-15 11:51 | US_ITS ---
PROCEDURE: THYROID REASON FOR EXAM: Thyroid nodule TECHNIQUE: Grayscale and color Doppler imaging of the thyroid was performed. COMPARISON: 07/14/2023. Images only are available for review, the report is not available at the time of dictation. FINDINGS: Right lobe measures 3.8 x 2.3 x 2.3cm. Essentially homogeneous background echotexture. No abnormal vascularity. Nodules as below: *Midgland, 27 x 22 x 17 mm, mostly solid, isoechoic, TI-RADS 3. Previously 29 x 20 x 22 mm. Left lobe measures 3.9 x 1.7 x 1.4 cm. Essentially homogeneous background echotexture. No abnormal vascularity. No solid or mostly solid nodules are identified. Isthmus measures 2 mm in thickness. US/Thyroid IMPRESSION: 1. Assessment is TI-RADS 3. A 27 mm nodule on the right meets criteria for FNA which is recommended per the below, unless previously performed. 2. Low normal size gland with essentially unremarkable background echotexture. No abnormal vascularity. Management recommendations for TI-RADS 3 findings: FNA if = 2.5 cm; Follow if = 1.5 cm at 1, 3, and 5 years. Enlargment is defined as ?20% increase in at least two nodule dimensions, with a minimal increase of 2 mm or ?50% or greater increase in volume. Recommendations per ACR Thyroid Imaging, Reporting and Data System (TI-RADS): Liliam elkins Paper of the ACR TI-RADS Committee, 2017 (https://linkinghub.[employer].com/retrieve/[email or web address]) Reading Location: [id number]
== END | disposition home or self-care (01) ==
LOC: US 11:50
PROVIDERS: PCP Internal Medicine; Referring Provider Surgery; Visit Provider Surgery
DX: E04.1 Nontoxic single thyroid nodule (principal)
CPT/HCPCS: 76536

== ENCOUNTER → 2024-06-05 | Outpatient (CLI) | payer MEDICARE, SELFPAY ==
--- NOTE | 2024-06-05 09:47 | BD_ITS ---
EXAM: DEXA BONE DENSITY/APPEND SKEL 06/05/2024 REASON FOR EXAM: F,74 y/o patient is postmenopausal. History of adult fracture. TECHNIQUE: DXA scan of the lumbar spine and total body less head, using make and model. REFERENCE LINKS: ISCD Pediatric Positions ISCD Adult Positions COMPARISON: DEXA examination dated 07/07/2021 FINDINGS: BMD and Z-SCORES DEXA examination of the distal left forearm shows a bone mineral density measured 0.561 grams/centimeter squared. T-score measures -2.2 and Z-score measures 0.4. There has been a significant decrease in the bone mineral density of the distal left forearm by 7.3% since the prior study dated 07/07/2021. DEXA examination of the left femoral neck shows a bone mineral density measures 0.780 grams/centimeter squared. T-score measures -0.6 and Z-score measures 1.5. Total bone mineral density of the left hip measures 0.875 grams/centimeter squared. T-score measures -0.5 and Z-score measures 1.3. DEXA examination right femoral neck shows a bone mineral density measures 0.843 grams/centimeter squared. T-score measures -0.1 and Z-score measures 2.1. Total bone mineral density of the right hip measures 0.891 grams/centimeter squared. T-score measures -0.4 and Z-score measures 1.4. Fracture Risk Calculation: FRAX (10-year Fracture Risk) Score: The 10 year fracture risk index for major osteoporotic fracture is 21% and for hip fracture is 3.1%. The patient does meet the pharmacological treatment recommendations for prevention of osteoporosis BD/Dexa Bone Density/Append Skel IMPRESSION: Patient demonstrates osteopenia of the distal left forearm and normal bone mine ral density of both hips. Recommend follow-up, if clinically warranted. Reading Location: [id number]
== END | disposition home or self-care (01) ==
LOC: OPBD 09:46
PROVIDERS: PCP Internal Medicine; Referring Provider Internal Medicine; Visit Provider Internal Medicine
DX: M85.832 Other specified disorders of bone density and structure, left forearm (principal)
CPT/HCPCS: 77081

== ENCOUNTER 2024-06-24 14:05 | Outpatient (RCR) | payer MEDICARE, SELFPAY | END 2024-06-24 19:00 | disposition home or self-care (01) | LOC: PT 14:05 | PROVIDERS: PCP Internal Medicine; Referring Provider Internal Medicine; Visit Provider Internal Medicine | DX: M51.369 Other intervertebral disc degeneration, lumbar region without mention of lumbar back pain or lower extremity pain (principal) ==

== ENCOUNTER → 2024-08-28 | Outpatient (CLI) | payer MEDICARE, SELFPAY ==
--- NOTE | 2024-08-28 16:32 | MRI_ITS ---
PROCEDURE: SPINE LUMBAR (ROUTINE) 08/28/2024 REASON FOR EXAM: DDD TECHNIQUE: SPINE LUMBAR (ROUTINE) COMPARISON: Radiographs on 09/27/2022. FINDINGS: Mild S shaped degenerative scoliosis. Moderate diffuse spondylosis. Moderate multilevel degenerative disc disease. Moderate chronic changes of Scheuermann's disease. There is normal signal intensity from the visualized bone marrow without evidence of replacement or acute fracture. The conus is unremarkable. Mildly exaggerated lumbar lordosis. Evaluation of the individual levels revealed the following: L5-S1: Grade 1 anterolisthesis measuring 3.2 mm. Mild diffuse disc bulge. Bilateral facet joint arthropathy. The spinal canal is not narrowed. Mild bilateral neural foramina narrowing. L4-5: Grade 1 anterolisthesis measuring 4.7 mm. Prior decompression and fusion with unremarkable transpedicular screws. Mild epidural fibrosis in the surgical bed. Mild diffuse disc bulge. Superimposed broad-based right posterolateral/foraminal disc protrusion measuring 3.2 mm. Mild bilateral facet joint arthropathy. There is moderate right and mild left neural foramina narrowing. L3-4: Grade 1 anterolisthesis measuring 3.3 mm. Mild diffuse disc bulge. Prior decompression and fusion with unremarkable transpedicular screws. Mild epidural fibrosis in the surgical bed. Bilateral facet joint arthropathy. The spinal canal is not narrowed. Mild bilateral neural foramina narrowing. L2-3: There is moderate diffuse disc bulge. Well-defined intracanicular synovial cyst arising from the anteromedial aspect of the left facet joint measuring a 1.2 cm impinging on the left lateral aspect of the thecal sac. Bilateral facet joint arthropathy and ligamentum flavum hypertrophy. The spinal canal is moderately narrowed. The spinal canal is not narrowed. There is moderate bilateral neural foramina narrowing. L1-2: Grade 1 retrolisthesis measuring 4.2 mm. Moderate diffuse disc bulge. Bilateral facet joint arthropathy and ligamentum flavum hypertrophy. The spinal canal is mildly narrowed. Moderate bilateral neural foramina narrowing. T12-L1: Grade 1 anterolisthesis measuring 4.8 mm. Moderate diffuse disc bulge. Bilateral facet joint arthropathy and ligamentum flavum hypertrophy. The spinal canal is mildly narrowed. Moderate bilateral neural foramina narrowing. T11-T12: Moderate diffuse disc bulge. The spinal canal is mildly narrowed. Mild bilateral neural foramina narrowing. T10-11 :Moderate diffuse disc bulge. The spinal canal is mildly narrowed. Mild bilateral neural foramina narrowing. MRI/Spine Lumbar (Routine) IMPRESSION: Spondylosis. Degenerative disc disease. Reading Location: [facility] [id number]
== END | disposition home or self-care (01) ==
LOC: MRI 16:11
PROVIDERS: PCP Internal Medicine; Referring Provider Internal Medicine; Visit Provider Internal Medicine
DX: M51.369 Other intervertebral disc degeneration, lumbar region without mention of lumbar back pain or lower extremity pain (principal)
CPT/HCPCS: 72148

== ENCOUNTER → 2024-09-18 | Outpatient (CLI) | payer MEDICARE, SELFPAY ==
--- NOTE | 2024-09-18 14:56 | BI_ITS ---
EXAM: SCRN MAMM (CAD)W/BERTIN BILAT DATE: 09/18/2024 CLINICAL HISTORY: F, Age 74 y/o , SCREENING TECHNIQUE: SCRN MAMM (CAD)W/BERTIN BILAT COMPARISON: Prior exam(s) were compared FINDINGS: TISSUE DENSITY: The breasts are heterogeneously dense, which may obscure small masses. Bilateral Breast Mammographic Findings: Right breast: There is an asymmetry in the outer right breast posterior depth with associated architectural distortion. Left breast: No suspicious masses, calcifications or other abnormalities are identified. BI/SCRN MAMM (CAD)W/BERTIN BILAT IMPRESSION: Additional diagnostic imaging of the right breast with diagnostic right mammogr am and possible right breast ultrasound. No mammographic evidence of malignancy in the left breast OVERALL FINAL ASSESSMENT BI-RADS 0: INCOMPLETE - NEED ADDITIONAL IMAGING EVALUATION. RECOMMENDATION: Additional Views obtained/call backs A letter with findings and recommendations will be mailed to the patient. Reading Location: [id number]
== END | disposition home or self-care (01) ==
LOC: OPBI 14:55
PROVIDERS: PCP Internal Medicine; Referring Provider Obstetrics & Gynecology; Visit Provider Obstetrics & Gynecology
DX: Z12.31 Encounter for screening mammogram for malignant neoplasm of breast (principal)
CPT/HCPCS: 77063; 77067

== ENCOUNTER → 2024-10-01 | Outpatient (CLI) | payer MEDICARE, SELFPAY ==
--- NOTE | 2024-10-01 12:56 | BI_ITS ---
EXAM: DIAG MAMM W/CAD, UNILAT; RT BRST UNILAT BERTIN ADD-ON 10/01/2024 CLINICAL HISTORY: 74-year-old female presents for follow-up of the right breast findings seen on the examination of 09/18/2024. Family history of breast cancer in her mother. TECHNIQUE: DIAG MAMM W/CAD, UNILAT; RT BRST UNILAT BERTIN ADD-ON. COMPARISON: Prior exam(s) dated 09/18/2024, 09/12/2023, 09/08/2022. FINDINGS: TISSUE DENSITY: There are scattered areas of fibroglandular density. Unilateral Right Breast Mammographic Findings: Follow-up examination performed for the asymmetry in the right breast seen on examination of 09/18/2024. On the present examination, the asymmetry in the outer right breast at posterior depth does not persist. Otherwise, there are no suspicious findings in the right breast. BI/DIAG MAMM W/CAD, UNILAT IMPRESSION: There is no mammographic evidence of malignancy. OVERALL FINAL ASSESSMENT BI-RADS 1: NEGATIVE RECOMMENDATION: Routine annual follow-up in 1 Year A letter with findings and recommendations will be mailed to the patient. Reading Location: [id number]
--- NOTE | 2024-10-01 12:56 | BI_ITS ---
EXAM: DIAG MAMM W/CAD, UNILAT; RT BRST UNILAT BERTIN ADD-ON 10/01/2024 CLINICAL HISTORY: 74-year-old female presents for follow-up of the right breast findings seen on the examination of 09/18/2024. Family history of breast cancer in her mother. TECHNIQUE: DIAG MAMM W/CAD, UNILAT; RT BRST UNILAT BERTIN ADD-ON. COMPARISON: Prior exam(s) dated 09/18/2024, 09/12/2023, 09/08/2022. FINDINGS: TISSUE DENSITY: There are scattered areas of fibroglandular density. Unilateral Right Breast Mammographic Findings: Follow-up examination performed for the asymmetry in the right breast seen on examination of 09/18/2024. On the present examination, the asymmetry in the outer right breast at posterior depth does not persist. Otherwise, there are no suspicious findings in the right breast. BI/Rt Brst Unilat Bertin Add-On IMPRESSION: There is no mammographic evidence of malignancy. OVERALL FINAL ASSESSMENT BI-RADS 1: NEGATIVE RECOMMENDATION: Routine annual follow-up in 1 Year A letter with findings and recommendations will be mailed to the patient. Reading Location: [id number]
== END | disposition home or self-care (01) ==
PROVIDERS: PCP Internal Medicine; Referring Provider Obstetrics & Gynecology; Visit Provider Obstetrics & Gynecology
DX: R92.8 Other abnormal and inconclusive findings on diagnostic imaging of breast (principal)
CPT/HCPCS: 77061; 77065; G0279